=== PATIENT | male | born 1980 | race Caucasian/White ===

== ENCOUNTER → 2018-05-13 | Day surgery (SDC) | payer BC ==
[~2018-05-13] MED LIST: Lactated Ringers 1,000 ML IV SCH; Lidocaine 1% 2 ML ONE; Lidocaine 1%/Sod Bicarbonate in NS 8.4% 1 ML Syringe IDERM PRN; Propofol 200 MG/20 ML SDV ONE; Sodium Chloride 0.9% 10 ML Syringe FLUSH PRN; fentaNYL 100 MCG/2 ML SDV ONE
--- NOTE | 2018-05-13 08:57 | PCM.PREANE ---
Preanesthetic Assessment - Anesthesia/Transfusion/Family Hx Anesthesia History: Prior Anesthesia Without Reaction Family History of Anesthesia Reaction: No Transfusion History: No Prior Transfusion(s) - Review of Systems General: No Symptoms Pulmonary: No Symptoms Cardiovascular: No Symptoms Gastrointestinal: No Symptoms Neurological: No Symptoms Other: Reports: None - Physical Assessment NPO Status Date: 05/12/18 NPO Status Time: 00:00 Pulse: 68 O2 Sat by Pulse Oximetry: 96 Respiratory Rate: 16 Blood Pressure: 123/76 Temperature: 36.3 C Height: 1.78 m Weight: 136.123 kg ASA Class: 2 Mental Status: Alert & Oriented x3 Dentition: Reports: [place](s), Caries Thyro-Mental Finger Breadths: 2 Mouth Opening Finger Breadths: 2 ROM/Head Extension: Full Lungs: Clear to Auscultation, Normal Respiratory Effort Cardiovascular: Regular Rate, Regular Rhythm - Allergies Allergies/Adverse Reactions: Allergies Allergy/AdvReac Type Severity Reaction Status Date / Time No Known Allergies Allergy Verified 05/12/18 13:07 - Anesthesia Plan Pre-Op Medication Ordered: None - Acknowledgements Anesthesia Type Planned: MAC Pt an Appropriate Candidate for the Planned Anesthesia: Yes Alternatives and Risks of Anesthesia Discussed w Pt/Guardian: Yes Pt/Guardian Understands and Agrees with Anesthesia Plan: Yes PreAnesthesia Questionnaire Gastrointestinal History: Reports: GERD, Other (See Below) Other Gastrointestinal History: barretts esophagus Endocrine/Metabolic History: Reports: Obesity/BMI 30+ - Past Surgical History GI Surgical History: Reports: EGD, Hernia, Inguinal - SUBSTANCE USE Smoking Status *Q: Current Some Day Smoker Tobacco Use Within Last Twelve Months: Cigarettes Second Hand Smoke Exposure: No Days Per Week of Alcohol Use: 0 Number of Drinks Per Day: 0 Total Drinks Per Week: 0 Recreational Drug Use History: No - HOME MEDS Home Medications: Home Meds Omeprazole 20 mg PO DAILY 05/12/18 [History] - CURRENT (IN HOUSE) MEDS Current Meds: Current Medications Lactated Ringer's (Ringers, Lactated) 1,000 mls @ 125 mls/hr IV ASDIRECTED KAYLA Stop: 05/13/18 23:00 Lidocaine/Sodium Bicarbonate (Buffered Lidocaine 1% In Ns 8.4%) 0.25 ml IDERM ONETIME PRN PRN Reason: Prior to IV Start Stop: 05/13/18 18:00 Sodium Chloride (Saline Flush) 10 ml FLUSH ASDIRECTED PRN PRN Reason: Keep Vein Open Stop: 05/13/18 18:00
--- NOTE | 2018-05-13 10:42 | PCM48HPAN ---
Post Anesthesia Note - EVALUATION WITHIN 48HRS OF ANESTHETIC Vital Signs in Normal Range: Yes Patient Participated in Evaluation: Yes Respiratory Function Stable: Yes Airway Patent: Yes Cardiovascular Function Stable: Yes Hydration Status Stable: Yes Pain Control Satisfactory: Yes Nausea and Vomiting Control Satisfactory: Yes Mental Status Recovered: Yes Pulse Rate: 65 SaO2: 95 Resp Rate: 16 Temperature: 97.7 C Blood Pressure: 109/67
--- NOTE | 2018-05-13 10:48 | PCM.OPNOTE ---
- General Post-Op/Procedure Note Date of Surgery/Procedure: 05/13/18 Operative Procedure(s): esophagogastroduodenoscopy with biopsy Findings: 1) 6 mm gastric polyp along the greater curvature of the stomach, sessile, removed by cold forceps polypectomy 2) inflammatory changes to the GE junction and distal esophagus Pre Op Diagnosis: history of Faulkner's esophagus Post-Op Diagnosis: history of Faulkner's esophagus Anesthesia Technique: MAC Primary Surgeon: Cali Banuelos Anesthesia Provider: Kimber Scanlon Pathology: 1) gastric antrum 2) greater curvature gastric polyp 3) GE junction 4) Distal esophagus 5) esophagus at 30 cm Condition: Good Free Text/Narrative:: Indications for surgery: The patient is a 37 yo male, with a history of Faulkner' s esophagus diagnosed in 2008, recommended previously for annual surveillance, but he has not undergone any endoscopic surveillance for several years. He was consented for esophagogastroduodenoscopy with possible biopsy. Indications, risks, and benefits were discussed. Description of procedure: After surgical consent was verified, the patient was brought to the endoscopy suite. Anesthesia inducted monitored anesthesia care. A procedural time-out was performed to verify proper patient and proper procedure. Appropriate padding and straps were placed. A bite block was placed. An endoscope was inserted through the mouth and advanced down the esohagus, into the stomach, through the pylorus, and into the 2nd portion of the duodenum. The scope was then withdrawn into the stomach. Retroflexed views of the GE junction were obtained. The scope was withdrawn through the GE junction, and the esophagus was inspected. The duodenum appeared normal. Biopsy of the gastric antrum was performed, which appeared endoscopically normal. There was a 6 mm sessile polyp in the greater curvature of the stomach, which was removed by cold forceps polypectomy. The remaining portions of the stomach appeared normal. There were inflammatory changes at the GE junction with erythematous mucosa that extended about 4 cm from proximal from the GE junction. Multiple 4- quadrant biopsies were obtained at GE junction, distal esophagus, and at the most proximal extend of the erythema, which was approximately at 30 cm (from the teeth). The patient tolerated the procedure well, was brought out of anesthesia, and transported to the PACU in stable condition. I was present and scrubbed for the entirety of the case. Cali Siriratsivawong, M.D., F.A.C.S. General Surgery Pager: [phone]
== END | disposition home or self-care (01) ==
LOC: JD.SDS 08:32
PROVIDERS: ATTEND Student in an Organized Health Care Education/Training Program
DX: K22.70 Barrett's esophagus without dysplasia (principal); K31.7 Polyp of stomach and duodenum; K31.89 Other diseases of stomach and duodenum; K21.9 Gastro-esophageal reflux disease without esophagitis; E66.9 Obesity, unspecified; Z68.41 Body mass index [BMI] 40.0-44.9, adult; F17.210 Nicotine dependence, cigarettes, uncomplicated; Z79.899 Other long term (current) drug therapy
CPT/HCPCS: 43239; J2704; J3010; J7120; 00731; J2001

== ENCOUNTER 2020-03-07 13:39 | Inpatient (IN) | payer BC, OTHER ==
[2020-03-07] MEDS ORDERED: Lidocaine 2% Jelly 10 ML Urojet MUCMEM ONE (14:12)
--- NOTE | 2020-03-07 14:18 | EDM.PDOC ---
ED HPI GENERAL MEDICAL PROBLEM - General Chief Complaint: Abdominal Pain Stated Complaint: BLOOD IN STOOL Time Seen by Provider: 03/07/20 14:13 Source of Information: Reports: Patient, Family (spouse) History Limitations: Reports: No Limitations - History of Present Illness INITIAL COMMENTS - FREE TEXT/NARRATIVE: 39-year-old male presents to the ED with 2 weeks history of movements per day that are all containing bright red blood. He appreciates dripping of blood into the toilet after having a bowel movement at times. He is not sure if the blood is wrapped around the outside of the stool or mixed in the stool. He has no pain with defecation. He states there is a little bit of urgency to go the last week or so. He has had intermittent rectal bleeding presumably due to hemorrhoids for several years. It is never lasted this long number or been present on a daily basis. He has never had a colonoscopy. He is feeling somewhat short of breath on exertion. Denies being dizzy or lightheaded. Onset: Other (Leading per rectum with every bowel movement) Onset Date: 02/29/20 Duration: Day(s):, Constant, Recurring (3 bowel movement has blood associated with it enough to color the entire toilet bowl bright red.) Location: Reports: Other (Bright red bleeding per rectum) Quality: Reports: Other Severity: Moderate (Bleeding per rectum) Improves with: Reports: None Worsens with: Reports: None Context: Denies: Activity, Exercise, Lifting, Sick Contact, Trauma, Other Associated Symptoms: Reports: Malaise, Shortness of Breath, Weakness (Is a little weak in the legs at times.). Denies: Confusion, Chest Pain, Cough, cough w sputum, Diaphoresis, Fever/Chills, Headaches, Loss of Appetite, Nausea/Vomiting, Rash, Seizure, Syncope (On exertion mildly.) Treatments LICENSED PHYSICAL THERAPIST ASSISTANT: Reports: Other (see below) Other Treatments LICENSED PHYSICAL THERAPIST ASSISTANT: denies using aspirin.motrin or pepto bismol Abdomen Pain Score (Numeric/FACES): 3 - Related Data Allergies Allergy/AdvReac Type Severity Reaction Status Date / Time No Known Allergies Allergy Verified 05/13/18 09:20 Home Meds: Home Meds Omeprazole 20 mg PO DAILY 05/12/18 [History] Past Medical History Gastrointestinal History: Reports: GERD, Other (See Below) Other Gastrointestinal History: barretts esophagus Endocrine/Metabolic History: Reports: Obesity/BMI 30+ - Past Surgical History GI Surgical History: Reports: EGD, Hernia, Inguinal Social & Family History - Tobacco Use Smoking Status *Q: Current Every Day Smoker Years of Tobacco use: 5 Packs/Tins Daily: 1 - Caffeine Use Caffeine Use: Reports: Tea - Recreational Drug Use Recreational Drug Use: No - Living Situation & Occupation Living situation: Reports: Occupation: Unemployed ED ROS GENERAL - Review of Systems Review Of Systems: See Below Constitutional: Reports: Malaise, Fatigue. Denies: Fever, Chills, Night Sweats, Diaphoresis, Decreased Appetite, Weight Loss, Weight Gain HEENT: Reports: No Symptoms Respiratory: Reports: Shortness of Breath (On exertion this last few days.) Cardiovascular: Reports: Dyspnea on Exertion. Denies: Chest Pain, Blood Pressure Problem, Claudication, Edema, Lightheadedness, Orthopnea, Palpitations (Noticed that slightly going up stairs.) Endocrine: Reports: Fatigue GI/Abdominal: Reports: Bloody Stool ([place] for the last week which is usually once or twice daily.), Hematochezia : Reports: No Symptoms Musculoskeletal: Reports: No Symptoms Skin: Reports: No Symptoms Neurological: Reports: No Symptoms Psychiatric: Reports: No Symptoms Hematologic/Lymphatic: Reports: No Symptoms Immunologic: Reports: No Symptoms ED EXAM, GI/ABD - Physical Exam Exam: See Below Exam Limited By: No Limitations General Appearance: WD/WN, No Apparent Distress, Other (Patient does appear quite pallid. Temperature is 36.8 pulse 93 respiratory is 20 BP 10/13/1976 pulse ox 100% on room air) Eyes: Bilateral: Pale Conjunctiva (Does have significant blepharal pallor bilaterally.) Respiratory/Chest: No Respiratory Distress, Lungs Clear, Normal Breath Sounds, No Accessory Muscle Use, Chest Non-Tender Cardiovascular: Normal Peripheral Pulses, Regular Rate, Rhythm, No Edema, No Gallop, No Murmur, No Rub GI/Abdominal Exam: Normal Bowel Sounds, Soft, Non-Tender, No Organomegaly, No Abnormal Bruit, No Mass, Pelvis Stable, Other (Surgical scars) Back Exam: Normal Inspection, Full Range of Motion. No: CVA Tenderness (L), CVA Tenderness (R) Extremities: Normal Inspection, Normal Range of Motion, Non-Tender, No Pedal Edema Neurological: Alert, Oriented, CN II-XII Intact, Normal Cognition Psychiatric: Normal Affect, Normal Mood Skin Exam: Warm, Dry, Intact, Pallor (Especially noted in the palmar creases of his hands.) Course - Vital Signs Last Recorded V/S: Last Vital Signs Temp 36.9 C 03/07/20 16:47 Pulse 87 03/07/20 16:47 Resp 161 H 03/07/20 16:47 BP 135/61 03/07/20 16:47 Pulse Ox 99 03/07/20 16:47 - Orders/Labs/Meds Orders: Active Orders 24 hr Category Date Time Status PACKED CELLS [RED BLOOD CELLS LP] [BBK] Stat Lab 03/07/20 14:25 Results TYPE AND SCREEN [BBK] Stat Lab 03/07/20 14:25 Results Transfuse PRBC [Transfuse Red Blood Cells] [COMM] Oth 03/07/20 15:15 Ordered Urgent Labs: Laboratory Tests 03/07/20 03/07/20 03/07/20 Range/Units 14:25 14:25 14:25 WBC 6.65 (4.23-9.07) K/mm3 RBC 3.82 L (4.63-6.08) M/mm3 Hgb 6.9 L* D (13.7-17.5) gm/dl Hct 24.7 L (40.1-51.0) % MCV 64.7 L D (79.0-92.2) fl MCH 18.1 L (25.7-32.2) pg MCHC 27.9 L (32.2-35.5) g/dl RDW Std Deviation 39.2 (35.1-43.9) fL Plt Count 396 H D (163-337) K/mm3 MPV 8.5 L (9.4-12.3) fl Neut % (Auto) 72.7 H (34.0-67.9) % Lymph % (Auto) 17.9 L (21.8-53.1) % O'Brien % (Auto) 6.9 (5.3-12.2) % Eos % (Auto) 1.4 (0.8-7.0) Baso % (Auto) 0.5 (0.1-1.2) % Neut # (Auto) 4.84 (1.78-5.38) K/mm3 Lymph # (Auto) 1.19 L (1.32-3.57) K/mm3 O'Brien # (Auto) 0.46 (0.30-0.82) K/mm3 Eos # (Auto) 0.09 (0.04-0.54) K/mm3 Baso # (Auto) 0.03 (0.01-0.08) K/mm3 Manual Slide Review Abnormal smear PT 10.7 (9.7-12.0) SECONDS INR 0.98 APTT 26 (22-31) SECONDS Sodium 138 (136-145) mEq/L Potassium 4.2 (3.5-5.1) mEq/L Chloride 104 (98-107) mEq/L Carbon Dioxide 24 (21-32) mEq/L Anion Gap 14.2 (5-15) BUN 11 (7-18) mg/dL Creatinine 1.1 (0.7-1.3) mg/dL Est Cr Clr Drug Dosing 92.17 mL/min Estimated GFR (MDRD) > 60 (>60) mL/min BUN/Creatinine Ratio 10.0 L (14-18) Glucose 94 (74-106) mg/dL Calcium 7.8 L (8.5-10.1) mg/dL Total Bilirubin 0.7 (0.2-1.0) mg/dL AST 18 (15-37) U/L ALT 32 (16-63) U/L Alkaline Phosphatase 66 (46-116) U/L Total Protein 7.5 (6.4-8.2) g/dl Albumin 4.0 (3.4-5.0) g/dl Globulin 3.5 gm/dL Albumin/Globulin Ratio 1.1 (1-2) Blood Type Gel Antibody Screen Crossmatch 03/07/20 Range/Units 14:25 WBC (4.23-9.07) K/mm3 RBC (4.63-6.08) M/mm3 Hgb (13.7-17.5) gm/dl Hct (40.1-51.0) % MCV (79.0-92.2) fl MCH (25.7-32.2) pg MCHC (32.2-35.5) g/dl RDW Std Deviation (35.1-43.9) fL Plt Count (163-337) K/mm3 MPV (9.4-12.3) fl Neut % (Auto) (34.0-67.9) % Lymph % (Auto) (21.8-53.1) % O'Brien % (Auto) (5.3-12.2) % Eos % (Auto) (0.8-7.0) Baso % (Auto) (0.1-1.2) % Neut # (Auto) (1.78-5.38) K/mm3 Lymph # (Auto) (1.32-3.57) K/mm3 O[place]Brien # (Auto) (0.30-0.82) K/mm3 Eos # (Auto) (0.04-0.54) K/mm3 Baso # (Auto) (0.01-0.08) K/mm3 Manual Slide Review PT (9.7-12.0) SECONDS INR APTT (22-31) SECONDS Sodium (136-145) mEq/L Potassium (3.5-5.1) mEq/L Chloride (98-107) mEq/L Carbon Dioxide (21-32) mEq/L Anion Gap (5-15) BUN (7-18) mg/dL Creatinine (0.7-1.3) mg/dL Est Cr Clr Drug Dosing mL/min Estimated GFR (MDRD) (>60) mL/min BUN/Creatinine Ratio (14-18) Glucose (74-106) mg/dL Calcium (8.5-10.1) mg/dL Total Bilirubin (0.2-1.0) mg/dL AST (15-37) U/L ALT (16-63) U/L Alkaline Phosphatase (46-116) U/L Total Protein (6.4-8.2) g/dl Albumin (3.4-5.0) g/dl Globulin gm/dL Albumin/Globulin Ratio (1-2) Blood Type O POSITIVE Gel Antibody Screen Negative Crossmatch See Detail Meds: Medications Discontinued Medications Generic Name Dose Route Start Last Admin Trade Name Freq PRN Reason Stop Dose Admin Lidocaine HCl 10 ml 03/07/20 14:12 03/07/20 18:09 Xylocaine 2% Jelly MUCMEM 03/07/20 14:13 10 ml ONETIME ONE Administration - Radiology Interpretation Free Text/Narrative:: 39-year-old male presents to the ED reporting blood with every bowel movement which is usually once or twice per day for the last week or more. Now he starting to feel somewhat symptomatic with weakness and dyspnea on exertion. He is not lightheaded. On examination he is quite pallid. I suspect his hemoglobin is around 9. Plan: routine lab work. This will include a type and screen. 9 will be to proceed with a rigid sigmoidoscopy to see if we can identify the source of bleeding per rectum. - Re-Assessments/Exams Free Text/Narrative Re-Assessment/Exam: 03/07/20 17:44: White count was 6.65. The neutrophils were 72.7% on the auto differential. Hemoglobin of 6.9 with a hematocrit of 24.7. MCV is 64.7 suggesting severe iron deficiency. Platelet count 396,000. Labs reveal 1+ anisocytosis and 2+ microcytosis and 2+ hypochromia and 1+ polychromasia. PT is 10.7 with INR of 0.98 PTT is 26. Sodium is 138 with potassium is 4.2. Chloride 104 with a bicarb of 24. Anion gap is 14.2. BUN is 11 with a creatinine of 1.1. GFR is greater than 60. Glucose is 94 calcium is 7.8 which correlates with acute blood loss. Bilirubin is 0.7 AST is 18 ALT is 32 Alk phosphatase 66 total protein 7.5 with an albumin fraction of 4.0. I attempted to do a sigmoidoscopy but the light burned out in the scope as I was doing the procedure. Admitted up to 16 cm and there was blood coating the lining of the colon at that level. There appears to be a large hemorrhoid internally at the 3:00 and 7:00 positions. I thought the 3:00 1 was actively oozing some blood. The procedure was also quite painful for the patient suggesting an anal fissure but unfortunate the leg went out before I could visualize the anal canal on the way out. 03/07/20 18:46 patient made with the patient and his that he will stay in the hospital and receive his blood transfusions overnight with a view to bowel prep per tomorrow and tentatively have his colonoscopy on Saturday morning. We discussed the case with Dr. Warner in this regard. 03/07/20 18:[address] Ramirez and he is excepted care. Patient will be admitted to the med surgery floor on telemetry. Departure - Departure Time of Disposition: 18:51 Disposition: Admitted As Inpatient 65 Condition: Fair Clinical Impression: Lower gastrointestinal bleeding, Internal bleeding hemorrhoids Anemia Qualifiers: Anemia type: iron deficiency Iron deficiency anemia type: chronic blood loss Qualified Code(s): D50.0 - Iron deficiency anemia secondary to blood loss (chronic) - Discharge Information *PRESCRIPTION DRUG MONITORING PROGRAM REVIEWED*: Not Applicable *COPY OF PRESCRIPTION DRUG MONITORING REPORT IN PATIENT KIT: Not Applicable Referrals: Ashley Mcdonald FLAT EXAMINER [Primary Care Provider] - Forms: ED Department Discharge Sepsis Event Note (ED) - Evaluation Sepsis Screening Result: No Definite Risk - Focused Exam Vital Signs: Vital Signs Temp Temp Pulse Resp BP Pulse Ox 03/07/20 16:47 36.9 C 87 161 H 135/61 99 03/07/20 16:32 36.6 C 85 16 116/77 100 03/07/20 13:56 36.8 C 93 20 128/77 100 - My Orders Last 24 Hours: My Active Orders 03/07/20 14:25 PACKED CELLS [RED BLOOD CELLS LP] [BBK] Stat TYPE AND SCREEN [BBK] Stat 03/07/20 15:15 Transfuse PRBC [Transfuse Red Blood Cells] [COMM] Urgent - Assessment/Plan Last 24 Hours: My Active Orders 03/07/20 14:25 PACKED CELLS [RED BLOOD CELLS LP] [BBK] Stat TYPE AND SCREEN [BBK] Stat 03/07/20 15:15 Transfuse PRBC [Transfuse Red Blood Cells] [COMM] Urgent
--- NOTE | 2020-03-07 17:49 | PCM.CONS ---
H&P History of Present Illness - General Date of Service: 03/07/20 Source of Information: Patient, Family, Provider History Limitations: Reports: No Limitations - History of Present Illness Initial Comments - Free Text/Narative: The patient is a 39 y/o gentleman who presents with one week of rectal bleeding. The blood is bright red and fills the toilet bowl. He has bowel movements 1-2x daily, and this is unchanged from baseline. reports his symptoms may have started with consumption of more nuts and seeds, and also that he has had abdominal tenderness in the last week. He denies any loose stools or diarrhea. He denies any pain. In the ED, pt had low hemoglobin, actively receiving a blood transfusion. Abdomen Pain Score (Numeric/FACES): 3 - Related Data Allergies/Adverse Reactions: Allergies Allergy/AdvReac Type Severity Reaction Status Date / Time No Known Allergies Allergy Verified 05/13/18 09:20 Home Medications: Home Meds Omeprazole 20 mg PO DAILY 05/12/18 [History] Past Medical History Gastrointestinal History: Reports: GERD, Other (See Below) Other Gastrointestinal History: barretts esophagus Endocrine/Metabolic History: Reports: Obesity/BMI 30+ - Past Surgical History GI Surgical History: Reports: EGD, Hernia, Inguinal Social & Family History - Tobacco Use Smoking Status *Q: Current Every Day Smoker Years of Tobacco use: 5 Packs/Tins Daily: 1 - Caffeine Use Caffeine Use: Reports: Tea - Recreational Drug Use Recreational Drug Use: No - Living Situation & Occupation Living situation: Reports: Occupation: Unemployed H&P Review of Systems - Review of Systems: Review Of Systems: See Below General: Reports: No Symptoms HEENT: Reports: No Symptoms Pulmonary: Reports: Shortness of Breath Cardiovascular: Reports: No Symptoms Gastrointestinal: Reports: Bloody Stool. Denies: Nausea, Vomiting Musculoskeletal: Reports: No Symptoms Skin: Reports: No Symptoms Neurological: Reports: No Symptoms Hematologic/Lymphatic: Reports: No Symptoms Exam - Exam Exam: See Below - Vital Signs Vital Signs: Last Vital Signs Temp 36.9 C 03/07/20 16:47 Pulse 87 03/07/20 16:47 Resp 161 H 03/07/20 16:47 BP 135/61 03/07/20 16:47 Pulse Ox 99 03/07/20 16:47 Weight: 140.614 kg - Exam Quality Assessment: No: Supplemental Oxygen General: Alert, Oriented HEENT: Conjunctiva Clear, EOMI Neck: Supple Lungs: Normal Respiratory Effort Cardiovascular: Regular Rate, Regular Rhythm GI/Abdominal Exam: Soft, Non-Tender, No Distention Rectal (Males) Exam: Hemorrhoids Extremities: Pedal Edema Peripheral Pulses: 2+: Dorsalis Pedis (L), Dorsalis Pedis (R) Skin: Warm, Dry, Intact Neurological: Cranial Nerves Intact Neuro Extensive - Mental Status: Normal Mood/Affect - Patient Data Lab Results Last 24 hrs: Laboratory Results - last 24 hr 03/07/20 03/07/20 03/07/20 Range/Units 14:25 14:25 14:25 WBC 6.65 (4.23-9.07) K/mm3 RBC 3.82 L (4.63-6.08) M/mm3 Hgb 6.9 L* D (13.7-17.5) gm/dl Hct 24.7 L (40.1-51.0) % MCV 64.7 L D (79.0-92.2) fl MCH 18.1 L (25.7-32.2) pg MCHC 27.9 L (32.2-35.5) g/dl RDW Std Deviation 39.2 (35.1-43.9) fL Plt Count 396 H D (163-337) K/mm3 MPV 8.5 L (9.4-12.3) fl Neut % (Auto) 72.7 H (34.0-67.9) % Lymph % (Auto) 17.9 L (21.8-53.1) % Caroline % (Auto) 6.9 (5.3-12.2) % Eos % (Auto) 1.4 (0.8-7.0) Baso % (Auto) 0.5 (0.1-1.2) % Neut # (Auto) 4.84 (1.78-5.38) K/mm3 Lymph # (Auto) 1.19 L (1.32-3.57) K/mm3 Caroline # (Auto) 0.46 (0.30-0.82) K/mm3 Eos # (Auto) 0.09 (0.04-0.54) K/mm3 Baso # (Auto) 0.03 (0.01-0.08) K/mm3 Manual Slide Review Abnormal smear PT 10.7 (9.7-12.0) SECONDS INR 0.98 APTT 26 (22-31) SECONDS Sodium 138 (136-145) mEq/L Potassium 4.2 (3.5-5.1) mEq/L Chloride 104 (98-107) mEq/L Carbon Dioxide 24 (21-32) mEq/L Anion Gap 14.2 (5-15) BUN 11 (7-18) mg/dL Creatinine 1.1 (0.7-1.3) mg/dL Est Cr Clr Drug Dosing 92.17 mL/min Estimated GFR (MDRD) > 60 (>60) mL/min BUN/Creatinine Ratio 10.0 L (14-18) Glucose 94 (74-106) mg/dL Calcium 7.8 L (8.5-10.1) mg/dL Total Bilirubin 0.7 (0.2-1.0) mg/dL AST 18 (15-37) U/L ALT 32 (16-63) U/L Alkaline Phosphatase 66 (46-116) U/L Total Protein 7.5 (6.4-8.2) g/dl Albumin 4.0 (3.4-5.0) g/dl Globulin 3.5 gm/dL Albumin/Globulin Ratio 1.1 (1-2) Blood Type Gel Antibody Screen Crossmatch 03/07/20 Range/Units 14:25 WBC (4.23-9.07) K/mm3 RBC (4.63-6.08) M/mm3 Hgb (13.7-17.5) gm/dl Hct (40.1-51.0) % MCV (79.0-92.2) fl MCH (25.7-32.2) pg MCHC (32.2-35.5) g/dl RDW Std Deviation (35.1-43.9) fL Plt Count (163-337) K/mm3 MPV (9.4-12.3) fl Neut % (Auto) (34.0-67.9) % Lymph % (Auto) (21.8-53.1) % Caroline % (Auto) (5.3-12.2) % Eos % (Auto) (0.8-7.0) Baso % (Auto) (0.1-1.2) % Neut # (Auto) (1.78-5.38) K/mm3 Lymph # (Auto) (1.32-3.57) K/mm3 Caroline # (Auto) (0.30-0.82) K/mm3 Eos # (Auto) (0.04-0.54) K/mm3 Baso # (Auto) (0.01-0.08) K/mm3 Manual Slide Review PT (9.7-12.0) SECONDS INR APTT (22-31) SECONDS Sodium (136-145) mEq/L Potassium (3.5-5.1) mEq/L Chloride (98-107) mEq/L Carbon Dioxide (21-32) mEq/L Anion Gap (5-15) BUN (7-18) mg/dL Creatinine (0.7-1.3) mg/dL Est Cr Clr Drug Dosing mL/min Estimated GFR (MDRD) (>60) mL/min BUN/Creatinine Ratio (14-18) Glucose (74-106) mg/dL Calcium (8.5-10.1) mg/dL Total Bilirubin (0.2-1.0) mg/dL AST (15-37) U/L ALT (16-63) U/L Alkaline Phosphatase (46-116) U/L Total Protein (6.4-8.2) g/dl Albumin (3.4-5.0) g/dl Globulin gm/dL Albumin/Globulin Ratio (1-2) Blood Type O POSITIVE Gel Antibody Screen Negative Crossmatch See Detail Result Diagrams: 03/07/20 14:25 03/07/20 14:25 Sepsis Event Note - Evaluation Sepsis Screening Result: No Definite Risk - Focused Exam Vital Signs: Vital Signs Temp Temp Pulse Resp BP Pulse Ox 03/07/20 16:47 36.9 C 87 161 H 135/61 99 03/07/20 16:32 36.6 C 85 16 116/77 100 03/07/20 13:56 36.8 C 93 20 128/77 100 Date Exam was Performed: 03/07/20 Time Exam was Performed: 18:09 Consult PN Assessment/Plan Procedures: Procedures ASSAY THYROID STIM HORMONE (04/09/18) COMPLETE CBC AUTOMATED (04/09/18) COMPREHEN METABOLIC PANEL (04/09/18) EGD BIOPSY SINGLE/MULTIPLE (05/13/18) GLYCOSYLATED HEMOGLOBIN TEST (04/09/18) LIPID PANEL (04/09/18) ROUTINE VENIPUNCTURE (04/09/18) URINALYSIS AUTO W/SCOPE (04/09/18) (1) Lower GI bleed SNOMED Code(s): 42342761 Code(s): K92.2 - GASTROINTESTINAL HEMORRHAGE, UNSPECIFIED Current Visit: Yes (2) History of Faulkner's esophagus SNOMED Code(s): 68934463847340001 Code(s): Z87.19 - PERSONAL HISTORY OF OTHER DISEASES OF THE DIGESTIVE SYSTEM Current Visit: No Problem List Initiated/Reviewed/Updated: Yes Plan: 39 y/o gentleman with rectal bleeding. minimally symptomatic, so blood loss is likely more chronic - continue transfusion of PRBC - if pt is admitted, recommend prep of golytely tomorrow. If pt goes home, he may prep at home. - plan for EGD and colonoscopy in 2 days for evaluation of bleeding - clear liquid diet - IVF resuscitation while in the hospital Nani Womack MD General surgery
[2020-03-07] MEDS ORDERED: Acetaminophen 325 MG Tab PO PRN (21:26)
[2020-03-07] MEDS ORDERED: Ondansetron 4 MG/2 ML SDV IV PRN (21:26)
--- NOTE | 2020-03-07 21:44 | PCM.HP.2 ---
H&P History of Present Illness - General Date of Service: 03/07/20 Admit Problem/Dx: Admission Diagnosis/Problem Admission Diagnosis/Problem Anemia - History of Present Illness Initial Comments - Free Text/Narative: 39-year-old male with a 1 to 2-week history of bright red blood per rectum. He states he has had bright red blood per rectum for the last 20 years off-and-on, but over the last week or so he has had some stomach discomfort, worsening sleep, increasing fatigue, and dyspnea on exertion. He states when he goes upstairs he can tell his heart is pounding and is short of breath. He states that there is been a lot of blood in the toilet. He states that generally only occurs with defecation. He denies any rectal pain. Patient has no recent weight loss, fever, chills, diaphoresis, or night sweats. Denies any lightheadedness or dizziness. No family history of colon cancer, but his dad had bladder cancer. That was a smoker. He is a non-smoker and nondrinker. He is on omeprazole 20 mg for reflux. In the emergency department patient was found to have a hemoglobin of 6.9. Vitals were stable with a blood pressure of 135/61 and heart rate of 87. Dr. Armendariz in surgery was consulted and she recommended transfusion and either inpatient or outpatient prep for colonoscopy. Dr. Greer did a sigmoidoscope up to 16 cm and there was blood coating the lining of the colon at 16 cm. There was a large hemorrhoid internally at both 3:00 and 7:00 positions. The 3:00 hemorrhoid was actively oozing some blood. Unfortunately, at 16 cm and the scope light burned out. It was felt that he would be at risk because of the active bleeding if he went home tonight. Plan will be to prep tomorrow and have colonoscopy done on Saturday morning. Abdomen Pain Score (Numeric/FACES): 3 - Related Data Allergies/Adverse Reactions: Allergies Allergy/AdvReac Type Severity Reaction Status Date / Time apple Allergy Other Verified 03/07/20 20:35 Home Medications: Home Meds Omeprazole 20 mg PO DAILY 05/12/18 [History] Past Medical History Gastrointestinal History: Reports: GERD, Other (See Below) Other Gastrointestinal History: barretts esophagus Endocrine/Metabolic History: Reports: Obesity/BMI 30+ - Infectious Disease History Infectious Disease History: Reports: Chicken Pox - Past Surgical History GI Surgical History: Reports: EGD, Hernia, Inguinal Social & Family History - Family History Family Medical History: Noncontributory - Tobacco Use Smoking Status *Q: Current Every Day Smoker Years of Tobacco use: 25 Packs/Tins Daily: 1 - Caffeine Use Caffeine Use: Reports: Energy Drinks, Tea - Recreational Drug Use Recreational Drug Use: No - Living Situation & Occupation Living situation: Reports: Occupation: Unemployed H&P Review of Systems - Review of Systems: Review Of Systems: Comprehensive ROS is negative, except as noted in HPI. Exam - Exam Exam: See Below - Vital Signs Vital Signs: Last Vital Signs Temp 98.0 F 03/07/20 19:37 Pulse 87 03/07/20 19:37 Resp 18 03/07/20 19:37 BP 107/70 03/07/20 19:37 Pulse Ox 97 03/07/20 19:37 Weight: 140.659 kg - Exam Quality Assessment: No: Supplemental Oxygen General: Alert, Oriented, 4 HEENT: Mucosa Moist & [place], Normal Nasal Septum. No: Conjunctiva Clear (Pale) Neck: Supple, Trachea Midline, 2 Lungs: Clear to Auscultation, Normal Respiratory Effort Cardiovascular: Regular Rate, Regular Rhythm GI/Abdominal Exam: Normal Bowel Sounds, Soft, Non-Tender, No Organomegaly, No Distention, No Abnormal Bruit Back Exam: Normal Inspection Extremities: Normal Inspection, Normal Range of Motion, Non-Tender, Normal Capillary Refill, Pedal Edema (1+ pitting edema at the ankles bilaterally) Peripheral Pulses: 2+: Posterior Tibial (L), Posterior Tibial (R), Dorsalis Pedis (L), Dorsalis Pedis (R) Skin: Warm, Dry, Intact Neurological: Cranial Nerves Intact, Reflexes Equal Bilateral Neuro Extensive - Mental Status: Alert, Oriented x3, Normal Mood/Affect, Normal Cognition Psychiatric: Alert, Normal Affect, Normal Mood - Patient Data Lab Results Last 24 hrs: Laboratory Results - last 24 hr 03/07/20 03/07/20 03/07/20 Range/Units 14:25 14:25 14:25 WBC 6.65 (4.23-9.07) K/mm3 RBC 3.82 L (4.63-6.08) M/mm3 Hgb 6.9 L* D (13.7-17.5) gm/dl Hct 24.7 L (40.1-51.0) % MCV 64.7 L D (79.0-92.2) fl MCH 18.1 L (25.7-32.2) pg MCHC 27.9 L (32.2-35.5) g/dl RDW Std Deviation 39.2 (35.1-43.9) fL Plt Count 396 H D (163-337) K/mm3 MPV 8.5 L (9.4-12.3) fl Neut % (Auto) 72.7 H (34.0-67.9) % Lymph % (Auto) 17.9 L (21.8-53.1) % [place] % (Auto) 6.9 (5.3-12.2) % Eos % (Auto) 1.4 (0.8-7.0) Baso % (Auto) 0.5 (0.1-1.2) % Neut # (Auto) 4.84 (1.78-5.38) K/mm3 Lymph # (Auto) 1.19 L (1.32-3.57) K/mm3 [place] # (Auto) 0.46 (0.30-0.82) K/mm3 Eos # (Auto) 0.09 (0.04-0.54) K/mm3 Baso # (Auto) 0.03 (0.01-0.08) K/mm3 Manual Slide Review Abnormal smear PT 10.7 (9.7-12.0) SECONDS INR 0.98 APTT 26 (22-31) SECONDS Sodium 138 (136-145) mEq/L Potassium 4.2 (3.5-5.1) mEq/L Chloride 104 (98-107) mEq/L Carbon Dioxide 24 (21-32) mEq/L Anion Gap 14.2 (5-15) BUN 11 (7-18) mg/dL Creatinine 1.1 (0.7-1.3) mg/dL Est Cr Clr Drug Dosing 92.17 mL/min Estimated GFR (MDRD) > 60 (>60) mL/min BUN/Creatinine Ratio 10.0 L (14-18) Glucose 94 (74-106) mg/dL Calcium 7.8 L (8.5-10.1) mg/dL Iron (65-175) ug/dL TIBC (100-400) ug/dL % Saturation (20-55) % Transferrin (202-364) mg/dL Ferritin (26-388) ng/ml Total Bilirubin 0.7 (0.2-1.0) mg/dL AST 18 (15-37) U/L ALT 32 (16-63) U/L Alkaline Phosphatase 66 (46-116) U/L Total Protein 7.5 (6.4-8.2) g/dl Albumin 4.0 (3.4-5.0) g/dl Globulin 3.5 gm/dL Albumin/Globulin Ratio 1.1 (1-2) Blood Type Gel Antibody Screen Crossmatch 03/07/20 03/07/20 Range/Units 14:25 19:10 WBC (4.23-9.07) K/mm3 RBC (4.63-6.08) M/mm3 Hgb (13.7-17.5) gm/dl Hct (40.1-51.0) % MCV (79.0-92.2) fl MCH (25.7-32.2) pg MCHC (32.2-35.5) g/dl RDW Std Deviation (35.1-43.9) fL Plt Count (163-337) K/mm3 MPV (9.4-12.3) fl Neut % (Auto) (34.0-67.9) % Lymph % (Auto) (21.8-53.1) % [place] % (Auto) (5.3-12.2) % Eos % (Auto) (0.8-7.0) Baso % (Auto) (0.1-1.2) % Neut # (Auto) (1.78-5.38) K/mm3 Lymph # (Auto) (1.32-3.57) K/mm3 [place] # (Auto) (0.30-0.82) K/mm3 Eos # (Auto) (0.04-0.54) K/mm3 Baso # (Auto) (0.01-0.08) K/mm3 Manual Slide Review PT (9.7-12.0) SECONDS INR APTT (22-31) SECONDS Sodium (136-145) mEq/L Potassium (3.5-5.1) mEq/L Chloride (98-107) mEq/L Carbon Dioxide (21-32) mEq/L Anion Gap (5-15) BUN (7-18) mg/dL Creatinine (0.7-1.3) mg/dL Est Cr Clr Drug Dosing mL/min Estimated GFR (MDRD) (>60) mL/min BUN/Creatinine Ratio (14-18) Glucose (74-106) mg/dL Calcium (8.5-10.1) mg/dL Iron 25 L (65-175) ug/dL TIBC 394 (100-400) ug/dL % Saturation 6 L (20-55) % Transferrin 315 (202-364) mg/dL Ferritin 4 L (26-388) ng/ml Total Bilirubin (0.2-1.0) mg/dL AST (15-37) U/L ALT (16-63) U/L Alkaline Phosphatase (46-116) U/L Total Protein (6.4-8.2) g/dl Albumin (3.4-5.0) g/dl Globulin gm/dL Albumin/Globulin Ratio (1-2) Blood Type O POSITIVE Gel Antibody Screen Negative Crossmatch See Detail Result Diagrams: 03/07/20 14:25 03/07/20 14:25 Sepsis Event Note - Evaluation Sepsis Screening Result: No Definite Risk - Focused Exam Vital Signs: Vital Signs Temp Temp Pulse Resp BP Pulse Ox 03/07/20 19:37 98.0 F 87 18 107/70 97 03/07/20 19:35 98.0 F 87 18 107/70 03/07/20 19:19 98.3 F 84 121/69 03/07/20 19:18 98.3 F 80 16 121/69 03/07/20 16:47 98.4 F 87 161 H 135/61 99 03/07/20 16:32 97.9 F 85 16 116/77 100 03/07/20 13:56 98.3 F 93 20 128/77 100 Date Exam was Performed: 03/07/20 Time Exam was Performed: 22:02 - Problem List (1) Anemia SNOMED Code(s): 894478247 ICD Code: D64.9 - ANEMIA, UNSPECIFIED Status: Acute Current Visit: Yes Qualifiers: Anemia type: iron deficiency Iron deficiency anemia type: chronic blood loss Qualified Code(s): D50.0 - Iron deficiency anemia secondary to blood loss (chronic) (2) Internal bleeding hemorrhoids SNOMED Code(s): 42954109 ICD Code: K64.8 - OTHER HEMORRHOIDS Status: Acute Current Visit: Yes (3) Lower GI bleed SNOMED Code(s): 31386460 ICD Code: K92.2 - GASTROINTESTINAL HEMORRHAGE, UNSPECIFIED Status: Acute Current Visit: Yes (4) History of Faulkner's esophagus SNOMED Code(s): 58062167229194460 ICD Code: Z87.19 - PERSONAL HISTORY OF OTHER DISEASES OF THE DIGESTIVE SYSTEM Status: Acute Current Visit: No Problem List Initiated/Reviewed/Updated: Yes Orders Last 24hrs: Active Orders 24 hr Category Date Time Status Admission Status [Patient Status] [ADT] Routine ADT 03/07/20 18:53 Active Antiembolic Devices [RC] PER UNIT ROUTINE Care 03/07/20 21:28 Active Notify Provider Consults [RC] ASDIRECTED Care 03/07/20 21:28 Active Oxygen Therapy [RC] PRN Care 03/07/20 21:26 Active Up ad Missy [RC] ASDIRECTED Care 03/07/20 21:26 Active VTE/DVT Education [RC] PER UNIT ROUTINE Care 03/07/20 21:26 Active Vital Signs [RC] Q4H Care 03/07/20 21:26 Active Consult to Physician [CONS] Routine Cons 03/07/20 21:26 Active Clear Liquid Diet [DIET] Diet 03/07/20 Dinner Ordered CBC WITH AUTO DIFF [HEME] AM Lab 03/08/20 05:11 Ordered CMP [COMPREHENSIVE METABOLIC PN,CMP] [CHEM] AM Lab 03/08/20 05:11 Ordered MAGNESIUM [CHEM] AM Lab 03/08/20 05:11 Ordered PACKED CELLS [RED BLOOD CELLS LP] [BBK] Stat Lab 03/07/20 14:25 Results PHOSPHORUS [CHEM] AM Lab 03/08/20 05:11 Ordered TYPE AND SCREEN [BBK] Stat Lab 03/07/20 14:25 Results Acetaminophen [Tylenol] Med 03/07/20 21:26 Active 650 mg PO Q4H PRN Ondansetron [Zofran] Med 03/07/20 21:26 Active 4 mg IV Q4H PRN Pantoprazole [ProTONIX] Med 03/08/20 06:00 Active 40 mg PO ACBREAKFAST Antiembolic Hose [OM.PC] Per Unit Routine Oth 03/07/20 21:27 Ordered Transfuse PRBC [Transfuse Red Blood Cells] [COMM] Oth 03/07/20 15:15 Ordered Urgent Resuscitation Status Routine Resus Stat 03/07/20 21:26 Ordered Medication Orders Acetaminophen (Tylenol) 650 mg PO Q4H PRN PRN Reason: Pain (Mild 1-3)/fever Ondansetron HCl (Zofran) 4 mg IV Q4H PRN PRN Reason: Nausea/Vomiting Pantoprazole Sodium (Protonix) 40 mg PO ACBREAKFAST KAYLA Assessment/Plan Comment:: Lower GI bleed with iron deficiency anemia and blood loss anemia * Hemoglobin of 6.9 on admission * History of significant rectal bleeding for the last 1 to 2 weeks. * No previous colonoscopy, but upper endoscopy previously performed showing Faulkner's esophagus * Iron 25, percent saturation 6, ferritin 4 * No current weight loss, night sweats Plan * Transfused 3 units packed red blood cells * Clear liquid diet * Bowel prep with GoLYTELY tomorrow * Colonoscopy planned by Dr. Armendariz on Saturday * Follow hemoglobin closely GERD * History of reflux and Faulkner esophagus * Currently on omeprazole 20 mg daily Plan * Protonix 40 mg every morning Hypocalcemia * Calcium 7.8 * Albumin 4.0 Plan * Recheck calcium in the morning * Magnesium level in the morning * If calcium is still low will do further evaluation VTE prophylaxis with compression stockings. Chemoprophylaxis contraindicated secondary to active GI bleed. CODE STATUS: Full code Disposition: Admit to medical floor on telemetry. Colonoscopy planned on . - Mortality Measure Prognosis:: Good
[2020-03-08] MEDS ORDERED: Pantoprazole 40 MG Tab.CR PO SCH ×2 (06:00→21:00)
[2020-03-08] MEDS ORDERED: Polyethylene Glycol/Electrolytes 4,000 ML Bottle PO ONE ×2 (07:31→16:00)
--- NOTE | 2020-03-08 08:20 | PCM.PN ---
- General Info Date of Service: 03/08/20 Admission Dx/Problem (Free Text): Admission Diagnosis/Problem Admission Diagnosis/Problem Anemia Subjective Update: In to see Diony. He is lying in bed and reports he feels pretty good. He has not had any BMs since yesterday. Dr. Armendariz saw the patient and is planning colonoscopy and EGD tomorrow. He has a history of barretts esophagus and reportedly was supposed to have a yearly EGD performed, however he hasn't followed through on this. Dr. Armendariz will perform this as well. He will start his bowel prep this evening. No other patient concerns. Functional Status: Reports: Pain Controlled, Tolerating Diet (Clear liquid ), Ambulating, Urinating. Denies: New Symptoms - Review of Systems General: Reports: Weakness, Fatigue. Denies: Fever, Malaise, Chills HEENT: Reports: No Symptoms. Denies: Headaches, Sore Throat Pulmonary: Reports: No Symptoms. Denies: Shortness of Breath, Cough, Sputum, Wheezing Cardiovascular: Reports: No Symptoms. Denies: Chest Pain, Palpitations, Dyspnea on Exertion, Edema Gastrointestinal: Reports: No Symptoms. Denies: Abdominal Pain, Constipation, Diarrhea, Hematochezia, Melena, Nausea, Vomiting Genitourinary: Reports: No Symptoms. Denies: Pain Musculoskeletal: Reports: No Symptoms Skin: Reports: No Symptoms Neurological: Reports: No Symptoms. Denies: Confusion, Difficulty Walking, Gait Disturbance Psychiatric: Reports: No Symptoms - Patient Data Vitals - Most Recent: Last Vital Signs Temp 98.1 F 03/08/20 03:59 Pulse 70 03/08/20 08:01 Resp 20 03/08/20 08:01 BP 115/71 03/08/20 08:01 Pulse Ox 98 03/08/20 08:01 Weight - Most Recent: 304 lb 4.8 oz I&O - Last 24 Hours: Intake & Output 03/07/20 03/08/20 03/08/20 22:59 06:59 14:59 Intake Total 360 982 Output Total 1500 Balance 360 -518 Lab Results Last 24 Hours: Laboratory Results - last 24 hr 03/07/20 03/07/20 03/07/20 Range/Units 14:25 14:25 14:25 WBC 6.65 (4.23-9.07) K/mm3 RBC 3.82 L (4.63-6.08) M/mm3 Hgb 6.9 L* D (13.7-17.5) gm/dl Hct 24.7 L (40.1-51.0) % MCV 64.7 L D (79.0-92.2) fl MCH 18.1 L (25.7-32.2) pg MCHC 27.9 L (32.2-35.5) g/dl RDW Std Deviation 39.2 (35.1-43.9) fL Plt Count 396 H D (163-337) K/mm3 MPV 8.5 L (9.4-12.3) fl Neut % (Auto) 72.7 H (34.0-67.9) % Lymph % (Auto) 17.9 L (21.8-53.1) % [place] % (Auto) 6.9 (5.3-12.2) % Eos % (Auto) 1.4 (0.8-7.0) Baso % (Auto) 0.5 (0.1-1.2) % Neut # (Auto) 4.84 (1.78-5.38) K/mm3 Lymph # (Auto) 1.19 L (1.32-3.57) K/mm3 [place] # (Auto) 0.46 (0.30-0.82) K/mm3 Eos # (Auto) 0.09 (0.04-0.54) K/mm3 Baso # (Auto) 0.03 (0.01-0.08) K/mm3 Manual Slide Review Abnormal smear PT 10.7 (9.7-12.0) SECONDS INR 0.98 APTT 26 (22-31) SECONDS Sodium 138 (136-145) mEq/L Potassium 4.2 (3.5-5.1) mEq/L Chloride 104 (98-107) mEq/L Carbon Dioxide 24 (21-32) mEq/L Anion Gap 14.2 (5-15) BUN 11 (7-18) mg/dL Creatinine 1.1 (0.7-1.3) mg/dL Est Cr Clr Drug Dosing 92.17 mL/min Estimated GFR (MDRD) > 60 (>60) mL/min BUN/Creatinine Ratio 10.0 L (14-18) Glucose 94 (74-106) mg/dL Calcium 7.8 L (8.5-10.1) mg/dL Phosphorus (2.6-4.7) mg/dL Magnesium (1.8-2.4) mg/dl Iron (65-175) ug/dL TIBC (100-400) ug/dL % Saturation (20-55) % Transferrin (202-364) mg/dL Ferritin (26-388) ng/ml Total Bilirubin 0.7 (0.2-1.0) mg/dL AST 18 (15-37) U/L ALT 32 (16-63) U/L Alkaline Phosphatase 66 (46-116) U/L Total Protein 7.5 (6.4-8.2) g/dl Albumin 4.0 (3.4-5.0) g/dl Globulin 3.5 gm/dL Albumin/Globulin Ratio 1.1 (1-2) Blood Type Gel Antibody Screen Crossmatch 03/07/20 03/07/20 03/08/20 Range/Units 14:25 19:10 04:58 WBC 5.83 (4.23-9.07) K/mm3 RBC 4.37 L (4.63-6.08) M/mm3 Hgb 8.7 L D (13.7-17.5) gm/dl Hct 30.1 L (40.1-51.0) % MCV 68.9 L D (79.0-92.2) fl MCH 19.9 L (25.7-32.2) pg MCHC 28.9 L (32.2-35.5) g/dl RDW Std Deviation 52.9 H (35.1-43.9) fL Plt Count 356 H (163-337) K/mm3 MPV 9.4 (9.4-12.3) fl Neut % (Auto) 66.6 (34.0-67.9) % Lymph % (Auto) 21.4 L (21.8-53.1) % [place] % (Auto) 9.3 (5.3-12.2) % Eos % (Auto) 2.2 (0.8-7.0) Baso % (Auto) 0.2 (0.1-1.2) % Neut # (Auto) 3.88 (1.78-5.38) K/mm3 Lymph # (Auto) 1.25 L (1.32-3.57) K/mm3 [place] # (Auto) 0.54 (0.30-0.82) K/mm3 Eos # (Auto) 0.13 (0.04-0.54) K/mm3 Baso # (Auto) 0.01 (0.01-0.08) K/mm3 Manual Slide Review Abnormal smear PT (9.7-12.0) SECONDS INR APTT (22-31) SECONDS Sodium (136-145) mEq/L Potassium (3.5-5.1) mEq/L Chloride (98-107) mEq/L Carbon Dioxide (21-32) mEq/L Anion Gap (5-15) BUN (7-18) mg/dL Creatinine (0.7-1.3) mg/dL Est Cr Clr Drug Dosing mL/min Estimated GFR (MDRD) (>60) mL/min BUN/Creatinine Ratio (14-18) Glucose (74-106) mg/dL Calcium (8.5-10.1) mg/dL Phosphorus (2.6-4.7) mg/dL Magnesium (1.8-2.4) mg/dl Iron 25 L (65-175) ug/dL TIBC 394 (100-400) ug/dL % Saturation 6 L (20-55) % Transferrin 315 (202-364) mg/dL Ferritin 4 L (26-388) ng/ml Total Bilirubin (0.2-1.0) mg/dL AST (15-37) U/L ALT (16-63) U/L Alkaline Phosphatase (46-116) U/L Total Protein (6.4-8.2) g/dl Albumin (3.4-5.0) g/dl Globulin gm/dL Albumin/Globulin Ratio (1-2) Blood Type O POSITIVE Gel Antibody Screen Negative Crossmatch See Detail 03/08/20 Range/Units 04:58 WBC (4.23-9.07) K/mm3 RBC (4.63-6.08) M/mm3 Hgb (13.7-17.5) gm/dl Hct (40.1-51.0) % MCV (79.0-92.2) fl MCH (25.7-32.2) pg MCHC (32.2-35.5) g/dl RDW Std Deviation (35.1-43.9) fL Plt Count (163-337) K/mm3 MPV (9.4-12.3) fl Neut % (Auto) (34.0-67.9) % Lymph % (Auto) (21.8-53.1) % [place] % (Auto) (5.3-12.2) % Eos % (Auto) (0.8-7.0) Baso % (Auto) (0.1-1.2) % Neut # (Auto) (1.78-5.38) K/mm3 Lymph # (Auto) (1.32-3.57) K/mm3 [place] # (Auto) (0.30-0.82) K/mm3 Eos # (Auto) (0.04-0.54) K/mm3 Baso # (Auto) (0.01-0.08) K/mm3 Manual Slide Review PT (9.7-12.0) SECONDS INR APTT (22-31) SECONDS Sodium 140 (136-145) mEq/L Potassium 4.4 (3.5-5.1) mEq/L Chloride 105 (98-107) mEq/L Carbon Dioxide 26 (21-32) mEq/L Anion Gap 13.4 (5-15) BUN 9 (7-18) mg/dL Creatinine 1.0 (0.7-1.3) mg/dL Est Cr Clr Drug Dosing 101.39 mL/min Estimated GFR (MDRD) > 60 (>60) mL/min BUN/Creatinine Ratio 9.0 L (14-18) Glucose 96 (74-106) mg/dL Calcium 8.6 (8.5-10.1) mg/dL Phosphorus 4.5 (2.6-4.7) mg/dL Magnesium 2.0 (1.8-2.4) mg/dl Iron (65-175) ug/dL TIBC (100-400) ug/dL % Saturation (20-55) % Transferrin (202-364) mg/dL Ferritin (26-388) ng/ml Total Bilirubin 1.5 H (0.2-1.0) mg/dL AST 17 (15-37) U/L ALT 34 (16-63) U/L Alkaline Phosphatase 54 (46-116) U/L Total Protein 7.0 (6.4-8.2) g/dl Albumin 3.6 (3.4-5.0) g/dl Globulin 3.4 gm/dL Albumin/Globulin Ratio 1.1 (1-2) Blood Type Gel Antibody Screen Crossmatch Med Orders - Current: Current Medications Acetaminophen (Tylenol) 650 mg PO Q4H PRN PRN Reason: Pain (Mild 1-3)/fever Ondansetron HCl (Zofran) 4 mg IV Q4H PRN PRN Reason: Nausea/Vomiting Pantoprazole Sodium (Protonix) 40 mg PO ACBREAKFAST KAYLA Last Admin: 03/08/20 06:19 Dose: 40 mg Documented by: Discontinued Medications Lidocaine HCl (Xylocaine 2% Jelly) 10 ml MUCMEM ONETIME ONE Stop: 03/07/20 14:13 Last Admin: 03/07/20 18:09 Dose: 10 ml Documented by: Polyethylene Glycol/Electrolytes (Golytely) 4,000 ml PO ONETIME ONE Stop: 03/08/20 07:32 - Exam Quality Assessment: DVT Prophylaxis General: Alert, Oriented, Cooperative, No Acute Distress HEENT: Pupils Equal, Pupils Reactive, Mucous Membr. Moist/[place] Neck: Supple, Trachea Midline Lungs: Clear to Auscultation, Normal Respiratory Effort Cardiovascular: Regular Rate, Regular Rhythm GI/Abdominal Exam: Normal Bowel Sounds, Soft, Non-Tender, No Distention (Male) Exam: Deferred Back Exam: Normal Inspection, Full Range of Motion Extremities: Normal Inspection, Normal Range of Motion, Non-Tender, No Pedal Edema, Normal Capillary Refill Peripheral Pulses: 2+: Radial (L), Radial (R), Dorsalis Pedis (L), Dorsalis Pedis (R) Skin: Warm, Dry, Intact Neurological: No New Focal Deficit Psy/Mental Status: Alert, Normal Affect, Normal Mood Sepsis Event Note - Evaluation Sepsis Screening Result: No Definite Risk - Focused Exam Vital Signs: Vital Signs Temp Pulse Pulse Resp BP BP Pulse Ox 03/08/20 08:01 70 20 115/71 98 03/08/20 03:59 98.1 F 63 18 124/80 95 03/08/20 00:34 98 F 65 18 124/80 94 L 03/08/20 00:29 97.7 F 71 16 90/68 96 03/08/20 00:19 97.7 F 71 16 90/68 95 03/08/20 00:10 98.1 F 73 16 134/65 97 03/07/20 23:00 98.0 F 74 16 134/65 96 Date Exam was Performed: 03/08/20 Time Exam was Performed: 11:22 - Problem List & Annotations (1) Anemia SNOMED Code(s): 989238501 Code(s): D64.9 - ANEMIA, UNSPECIFIED Status: Acute Current Visit: Yes Qualifiers: Anemia type: iron deficiency Iron deficiency anemia type: chronic blood loss Qualified Code(s): D50.0 - Iron deficiency anemia secondary to blood loss (chronic) (2) Internal bleeding hemorrhoids SNOMED Code(s): 54791714 Code(s): K64.8 - OTHER HEMORRHOIDS Status: Acute Priority: High Current Visit: Yes (3) Lower GI bleed SNOMED Code(s): 84712509 Code(s): K92.2 - GASTROINTESTINAL HEMORRHAGE, UNSPECIFIED Status: Acute Priority: High Current Visit: Yes (4) History of Faulkner's esophagus SNOMED Code(s): 99029164410315931 Code(s): Z87.19 - PERSONAL HISTORY OF OTHER DISEASES OF THE DIGESTIVE SYSTEM Status: Chronic Priority: Medium Current Visit: No (5) Chewing tobacco use SNOMED Code(s): 44535637 Code(s): Z72.0 - TOBACCO USE Status: Chronic Priority: Medium Current Visit: Yes (6) Hypocalcemia SNOMED Code(s): 8855290 Code(s): E83.51 - HYPOCALCEMIA Status: Resolved Priority: High Current Visit: Yes (7) Obesity SNOMED Code(s): 327317548, 720351094 Code(s): E66.9 - OBESITY, UNSPECIFIED Status: Chronic Priority: Medium Current Visit: Yes Qualifiers: Obesity type: unspecified obesity type Obesity classification: adult class 3 (BMI >= 40) Serious obesity comorbidity presence: unspecified whether serious comorbidity present Body mass index: BMI 40.0-44.9 Qualified Code(s): E66.01 - Morbid (severe) obesity due to excess calories; Z68.41 - Body mass index (BMI) 40.0-44.9, adult - Problem List Review Problem List Initiated/Reviewed/Updated: Yes - Plan Plan:: Lower GI bleed Iron deficiency anemia and blood loss anemia Internal bleeding hemorrhoids Hemoglobin of 6.9 on admission History of significant rectal bleeding for the last 1 to 2 weeks. No previous colonoscopy, but upper endoscopy previously performed showing Faulkner's esophagus Iron 25, percent saturation 6, ferritin 4 No current weight loss, night sweats Hgb trend: 6.9-->8.7 (s/p 3 units) Plan * Transfused 3 units packed red blood cells * Clear liquid diet * Bowel prep with GoLYTELY today * Colonoscopy/EGD planned by Dr. Armendariz tomorrow * Follow hemoglobin closely * Re-check Hgb tonight GERD Obesity Hx/o Faulkner's Esophagus History of reflux and Faulkner esophagus Currently on omeprazole 20 mg at bedtime Plan * Protonix 40 mg * [employer] consult * EGD tomorrow to follow-up with prior Faulkner's esophagus dx Chewing tobacco use Reports one can of chewing tobacco use daily Plan * Nicotine patch * Cessation counseling S/P Hypocalcemia * Calcium 7.8-->8.6 * Albumin 4.0-->3.6 VTE prophylaxis: compression stockings. Chemoprophylaxis contraindicated se condary to active GI bleed. GI Prophylaxis: PPI CODE STATUS: Full code PCP: Ashley Mcdonald NP Disposition: Admit to medical floor on telemetry. Colonoscopy planned tomorrow. Discharge plan pending colonoscopy results.
--- NOTE | 2020-03-08 12:08 | PCM.CONSN ---
- General Info Date of Service: 03/08/20 Functional Status: Reports: Pain Controlled, Other (no further bowel movements or bleeding this AM) - Patient Data Vitals - Most Recent: Last Vital Signs Temp 36.7 C 03/08/20 03:59 Pulse 70 03/08/20 08:01 Resp 20 03/08/20 08:01 BP 115/71 03/08/20 08:01 Pulse Ox 98 03/08/20 08:01 Weight - Most Recent: 138.028 kg I&O - Last 24 Hours: Intake & Output 03/07/20 03/08/20 03/08/20 22:59 06:59 14:59 Intake Total 360 982 760 Output Total 1500 Balance 360 -518 760 Lab Results Last 24 Hours: Laboratory Results - last 24 hr 03/07/20 03/07/20 03/07/20 Range/Units 14:25 14:25 14:25 WBC 6.65 (4.23-9.07) K/mm3 RBC 3.82 L (4.63-6.08) M/mm3 Hgb 6.9 L* D (13.7-17.5) gm/dl Hct 24.7 L (40.1-51.0) % MCV 64.7 L D (79.0-92.2) fl MCH 18.1 L (25.7-32.2) pg MCHC 27.9 L (32.2-35.5) g/dl RDW Std Deviation 39.2 (35.1-43.9) fL Plt Count 396 H D (163-337) K/mm3 MPV 8.5 L (9.4-12.3) fl Neut % (Auto) 72.7 H (34.0-67.9) % Lymph % (Auto) 17.9 L (21.8-53.1) % [place] % (Auto) 6.9 (5.3-12.2) % Eos % (Auto) 1.4 (0.8-7.0) Baso % (Auto) 0.5 (0.1-1.2) % Neut # (Auto) 4.84 (1.78-5.38) K/mm3 Lymph # (Auto) 1.19 L (1.32-3.57) K/mm3 [place] # (Auto) 0.46 (0.30-0.82) K/mm3 Eos # (Auto) 0.09 (0.04-0.54) K/mm3 Baso # (Auto) 0.03 (0.01-0.08) K/mm3 Manual Slide Review Abnormal smear PT 10.7 (9.7-12.0) SECONDS INR 0.98 APTT 26 (22-31) SECONDS Sodium 138 (136-145) mEq/L Potassium 4.2 (3.5-5.1) mEq/L Chloride 104 (98-107) mEq/L Carbon Dioxide 24 (21-32) mEq/L Anion Gap 14.2 (5-15) BUN 11 (7-18) mg/dL Creatinine 1.1 (0.7-1.3) mg/dL Est Cr Clr Drug Dosing 92.17 mL/min Estimated GFR (MDRD) > 60 (>60) mL/min BUN/Creatinine Ratio 10.0 L (14-18) Glucose 94 (74-106) mg/dL Calcium 7.8 L (8.5-10.1) mg/dL Phosphorus (2.6-4.7) mg/dL Magnesium (1.8-2.4) mg/dl Iron (65-175) ug/dL TIBC (100-400) ug/dL % Saturation (20-55) % Transferrin (202-364) mg/dL Ferritin (26-388) ng/ml Total Bilirubin 0.7 (0.2-1.0) mg/dL AST 18 (15-37) U/L ALT 32 (16-63) U/L Alkaline Phosphatase 66 (46-116) U/L Total Protein 7.5 (6.4-8.2) g/dl Albumin 4.0 (3.4-5.0) g/dl Globulin 3.5 gm/dL Albumin/Globulin Ratio 1.1 (1-2) Blood Type Gel Antibody Screen Crossmatch 03/07/20 03/07/20 03/08/20 Range/Units 14:25 19:10 04:58 WBC 5.83 (4.23-9.07) K/mm3 RBC 4.37 L (4.63-6.08) M/mm3 Hgb 8.7 L D (13.7-17.5) gm/dl Hct 30.1 L (40.1-51.0) % MCV 68.9 L D (79.0-92.2) fl MCH 19.9 L (25.7-32.2) pg MCHC 28.9 L (32.2-35.5) g/dl RDW Std Deviation 52.9 H (35.1-43.9) fL Plt Count 356 H (163-337) K/mm3 MPV 9.4 (9.4-12.3) fl Neut % (Auto) 66.6 (34.0-67.9) % Lymph % (Auto) 21.4 L (21.8-53.1) % [place] % (Auto) 9.3 (5.3-12.2) % Eos % (Auto) 2.2 (0.8-7.0) Baso % (Auto) 0.2 (0.1-1.2) % Neut # (Auto) 3.88 (1.78-5.38) K/mm3 Lymph # (Auto) 1.25 L (1.32-3.57) K/mm3 [place] # (Auto) 0.54 (0.30-0.82) K/mm3 Eos # (Auto) 0.13 (0.04-0.54) K/mm3 Baso # (Auto) 0.01 (0.01-0.08) K/mm3 Manual Slide Review Abnormal smear PT (9.7-12.0) SECONDS INR APTT (22-31) SECONDS Sodium (136-145) mEq/L Potassium (3.5-5.1) mEq/L Chloride (98-107) mEq/L Carbon Dioxide (21-32) mEq/L Anion Gap (5-15) BUN (7-18) mg/dL Creatinine (0.7-1.3) mg/dL Est Cr Clr Drug Dosing mL/min Estimated GFR (MDRD) (>60) mL/min BUN/Creatinine Ratio (14-18) Glucose (74-106) mg/dL Calcium (8.5-10.1) mg/dL Phosphorus (2.6-4.7) mg/dL Magnesium (1.8-2.4) mg/dl Iron 25 L (65-175) ug/dL TIBC 394 (100-400) ug/dL % Saturation 6 L (20-55) % Transferrin 315 (202-364) mg/dL Ferritin 4 L (26-388) ng/ml Total Bilirubin (0.2-1.0) mg/dL AST (15-37) U/L ALT (16-63) U/L Alkaline Phosphatase (46-116) U/L Total Protein (6.4-8.2) g/dl Albumin (3.4-5.0) g/dl Globulin gm/dL Albumin/Globulin Ratio (1-2) Blood Type O POSITIVE Gel Antibody Screen Negative Crossmatch See Detail 03/08/20 Range/Units 04:58 WBC (4.23-9.07) K/mm3 RBC (4.63-6.08) M/mm3 Hgb (13.7-17.5) gm/dl Hct (40.1-51.0) % MCV (79.0-92.2) fl MCH (25.7-32.2) pg MCHC (32.2-35.5) g/dl RDW Std Deviation (35.1-43.9) fL Plt Count (163-337) K/mm3 MPV (9.4-12.3) fl Neut % (Auto) (34.0-67.9) % Lymph % (Auto) (21.8-53.1) % [place] % (Auto) (5.3-12.2) % Eos % (Auto) (0.8-7.0) Baso % (Auto) (0.1-1.2) % Neut # (Auto) (1.78-5.38) K/mm3 Lymph # (Auto) (1.32-3.57) K/mm3 [place] # (Auto) (0.30-0.82) K/mm3 Eos # (Auto) (0.04-0.54) K/mm3 Baso # (Auto) (0.01-0.08) K/mm3 Manual Slide Review PT (9.7-12.0) SECONDS INR APTT (22-31) SECONDS Sodium 140 (136-145) mEq/L Potassium 4.4 (3.5-5.1) mEq/L Chloride 105 (98-107) mEq/L Carbon Dioxide 26 (21-32) mEq/L Anion Gap 13.4 (5-15) BUN 9 (7-18) mg/dL Creatinine 1.0 (0.7-1.3) mg/dL Est Cr Clr Drug Dosing 101.39 mL/min Estimated GFR (MDRD) > 60 (>60) mL/min BUN/Creatinine Ratio 9.0 L (14-18) Glucose 96 (74-106) mg/dL Calcium 8.6 (8.5-10.1) mg/dL Phosphorus 4.5 (2.6-4.7) mg/dL Magnesium 2.0 (1.8-2.4) mg/dl Iron (65-175) ug/dL TIBC (100-400) ug/dL % Saturation (20-55) % Transferrin (202-364) mg/dL Ferritin (26-388) ng/ml Total Bilirubin 1.5 H (0.2-1.0) mg/dL AST 17 (15-37) U/L ALT 34 (16-63) U/L Alkaline Phosphatase 54 (46-116) U/L Total Protein 7.0 (6.4-8.2) g/dl Albumin 3.6 (3.4-5.0) g/dl Globulin 3.4 gm/dL Albumin/Globulin Ratio 1.1 (1-2) Blood Type Gel Antibody Screen Crossmatch Med Orders - Current: Current Medications Acetaminophen (Tylenol) 650 mg PO Q4H PRN PRN Reason: Pain (Mild 1-3)/fever Miscellaneous Information (Remove Patch) 1 ea TRDERM Q24H [facility] Nicotine (Habitrol) 14 mg TRDERM DAILY [facility] Ondansetron HCl (Zofran) 4 mg IV Q4H PRN PRN Reason: Nausea/Vomiting Pantoprazole Sodium (Protonix) 40 mg PO BEDTIME [facility] Discontinued Medications Lidocaine HCl (Xylocaine 2% Jelly) 10 ml MUCMEM ONETIME ONE Stop: 03/07/20 14:13 Last Admin: 03/07/20 18:09 Dose: 10 ml Documented by: Pantoprazole Sodium (Protonix) 40 mg PO ACBREAKFAST [facility] Last Admin: 03/08/20 06:19 Dose: 40 mg Documented by: Polyethylene Glycol/Electrolytes (Golytely) 4,000 ml PO ONETIME ONE Stop: 03/08/20 07:32 - Exam Quality Assessment: No: Supplemental Oxygen General: Alert Lungs: Normal Respiratory Effort GI/Abdominal Exam: Soft, Non-Tender, No Distention Sepsis Event Note - Evaluation Sepsis Screening Result: No Definite Risk - Focused Exam Vital Signs: Vital Signs Temp Pulse Pulse Resp BP BP Pulse Ox 03/08/20 08:01 70 20 115/71 98 03/08/20 03:59 36.7 C 63 18 124/80 95 03/08/20 00:34 36.6 C 65 18 124/80 94 L 03/08/20 00:29 36.5 C 71 16 90/68 96 03/08/20 00:19 36.5 C 71 16 90/68 95 03/08/20 00:10 36.7 C 73 16 134/65 97 Date Exam was Performed: 03/08/20 Time Exam was Performed: 17:25 Consult PN Assessment/Plan Procedures: Procedures ASSAY THYROID STIM HORMONE (04/09/18) COMPLETE CBC AUTOMATED (04/09/18) COMPREHEN METABOLIC PANEL (04/09/18) EGD BIOPSY SINGLE/MULTIPLE (05/13/18) GLYCOSYLATED HEMOGLOBIN TEST (04/09/18) LIPID PANEL (04/09/18) ROUTINE VENIPUNCTURE (04/09/18) URINALYSIS AUTO W/SCOPE (04/09/18) (1) Lower GI bleed SNOMED Code(s): 71851974 Code(s): K92.2 - GASTROINTESTINAL HEMORRHAGE, UNSPECIFIED Priority: High Current Visit: Yes (2) History of Faulkner's esophagus SNOMED Code(s): 73651187044464864 Code(s): Z87.19 - PERSONAL HISTORY OF OTHER DISEASES OF THE DIGESTIVE SYSTEM Priority: Medium Current Visit: No Problem List Initiated/Reviewed/Updated: Yes My Orders Last 24 Hours: My Active Orders 03/08/20 09:56 Schedule Procedure [COMM] Routine Plan: 39 y/o gentleman with rectal bleeding. minimally symptomatic, so blood loss is likely more chronic - continue clears - prep of golytely - plan for EGD and colonoscopy tomorrow. Discussed risks of perforation, consent obtained. - NPO after midnight - IVF resuscitation while in the hospital Nani Womack MD General surgery
--- NOTE | 2020-03-08 12:49 | PCM.PREANE ---
Preanesthetic Assessment - Anesthesia/Transfusion/Family Hx Anesthesia History: Prior Anesthesia Without Reaction Family History of Anesthesia Reaction: No Transfusion History: No Prior Transfusion(s) Intubation History: Unknown - Review of Systems General: No Symptoms Pulmonary: No Symptoms (Smoker: quit October 2019: chews 1can per day/ETOH: never) Cardiovascular: No Symptoms, Dyspnea on Exertion Gastrointestinal: No Symptoms (GERD), Hematochezia Neurological: No Symptoms Other: Reports: None (received 3 units of PRBC's 03/07/2020 with starting HGB= 6.65) - Physical Assessment NPO Status Date: 03/07/20 NPO Status Time: 12:00 Vital Signs: Last Vital Signs Temp 36.7 C 03/08/20 03:59 Pulse 70 03/08/20 08:01 Resp 20 03/08/20 08:01 BP 115/71 03/08/20 08:01 Pulse Ox 98 03/08/20 08:01 Height: 1.78 m Weight: 138.028 kg ASA Class: 3 Mental Status: Alert & Oriented x3 Airway Class: Mallampati = 2 Dentition: Reports: Normal Dentition, Caries Thyro-Mental Finger Breadths: 4 Mouth Opening Finger Breadths: 3 ROM/Head Extension: Full Lungs: Clear to Auscultation, Normal Respiratory Effort Cardiovascular: Regular Rate, Regular Rhythm, No Murmurs - Lab Values: Laboratory Last Values WBC 5.83 K/mm3 (4.23-9.07) 03/08/20 04:58 RBC 4.37 M/mm3 (4.63-6.08) L 03/08/20 04:58 Hgb 8.7 gm/dl (13.7-17.5) L D 03/08/20 04:58 Hct 30.1 % (40.1-51.0) L 03/08/20 04:58 MCV 68.9 fl (79.0-92.2) L D 03/08/20 04:58 MCH 19.9 pg (25.7-32.2) L 03/08/20 04:58 MCHC 28.9 g/dl (32.2-35.5) L 03/08/20 04:58 RDW Std Deviation 52.9 fL (35.1-43.9) H 03/08/20 04:58 Plt Count 356 K/mm3 (163-337) H 03/08/20 04:58 MPV 9.4 fl (9.4-12.3) 03/08/20 04:58 Neut % (Auto) 66.6 % (34.0-67.9) 03/08/20 04:58 Lymph % (Auto) 21.4 % (21.8-53.1) L 03/08/20 04:58 [place] % (Auto) 9.3 % (5.3-12.2) 03/08/20 04:58 Eos % (Auto) 2.2 (0.8-7.0) 03/08/20 04:58 Baso % (Auto) 0.2 % (0.1-1.2) 03/08/20 04:58 Neut # (Auto) 3.88 K/mm3 (1.78-5.38) 03/08/20 04:58 Lymph # (Auto) 1.25 K/mm3 (1.32-3.57) L 03/08/20 04:58 [place] # (Auto) 0.54 K/mm3 (0.30-0.82) 03/08/20 04:58 Eos # (Auto) 0.13 K/mm3 (0.04-0.54) 03/08/20 04:58 Baso # (Auto) 0.01 K/mm3 (0.01-0.08) 03/08/20 04:58 Manual Slide Review Abnormal smear 03/08/20 04:58 PT 10.7 SECONDS (9.7-12.0) 03/07/20 14:25 INR 0.98 03/07/20 14:25 APTT 26 SECONDS (22-31) 03/07/20 14:25 Sodium 140 mEq/L (136-145) 03/08/20 04:58 Potassium 4.4 mEq/L (3.5-5.1) 03/08/20 04:58 Chloride 105 mEq/L (98-107) 03/08/20 04:58 Carbon Dioxide 26 mEq/L (21-32) 03/08/20 04:58 Anion Gap 13.4 (5-15) 03/08/20 04:58 BUN 9 mg/dL (7-18) 03/08/20 04:58 Creatinine 1.0 mg/dL (0.7-1.3) 03/08/20 04:58 Est Cr Clr Drug Dosing 101.39 mL/min 03/08/20 04:58 Estimated GFR (MDRD) > 60 mL/min (>60) 03/08/20 04:58 BUN/Creatinine Ratio 9.0 (14-18) L 03/08/20 04:58 Glucose 96 mg/dL (74-106) 03/08/20 04:58 Calcium 8.6 mg/dL (8.5-10.1) 03/08/20 04:58 Phosphorus 4.5 mg/dL (2.6-4.7) 03/08/20 04:58 Magnesium 2.0 mg/dl (1.8-2.4) 03/08/20 04:58 Iron 25 ug/dL (65-175) L 03/07/20 19:10 TIBC 394 ug/dL (100-400) 03/07/20 19:10 % Saturation 6 % (20-55) L 03/07/20 19:10 Transferrin 315 mg/dL (202-364) 03/07/20 19:10 Ferritin 4 ng/ml (26-388) L 03/07/20 19:10 Total Bilirubin 1.5 mg/dL (0.2-1.0) H 03/08/20 04:58 AST 17 U/L (15-37) 03/08/20 04:58 ALT 34 U/L (16-63) 03/08/20 04:58 Alkaline Phosphatase 54 U/L (46-116) 03/08/20 04:58 Total Protein 7.0 g/dl (6.4-8.2) 03/08/20 04:58 Albumin 3.6 g/dl (3.4-5.0) 03/08/20 04:58 Globulin 3.4 gm/dL 03/08/20 04:58 Albumin/Globulin Ratio 1.1 (1-2) 03/08/20 04:58 Blood Type O POSITIVE 03/07/20 14:25 Gel Antibody Screen Negative 03/07/20 14:25 Crossmatch See Detail 03/07/20 14:25 Above labs reviewed and noted and within acceptable ranges to proceed with s cheduled procedure. - Allergies Allergies/Adverse Reactions: Allergies Allergy/AdvReac Type Severity Reaction Status Date / Time apple Allergy Other Verified 03/07/20 20:35 - Anesthesia Plan Pre-Op Medication Ordered: None - Acknowledgements Anesthesia Type Planned: MAC Pt an Appropriate Candidate for the Planned Anesthesia: Yes Alternatives and Risks of Anesthesia Discussed w Pt/Guardian: Yes Pt/Guardian Understands and Agrees with Anesthesia Plan: Yes PreAnesthesia Questionnaire Gastrointestinal History: Reports: GERD, Other (See Below) Other Gastrointestinal History: barretts esophagus Endocrine/Metabolic History: Reports: Obesity/BMI 30+ - Infectious Disease History Infectious Disease History: Reports: Chicken Pox - Past Surgical History GI Surgical History: Reports: EGD, Hernia, Inguinal - SUBSTANCE USE Smoking Status *Q: Current Every Day Smoker Tobacco Use Within Last Twelve Months: Smokeless Tobacco Recreational Drug Use History: No - HOME MEDS Home Medications: Home Meds Omeprazole 20 mg PO DAILY 05/12/18 [History] - CURRENT (IN HOUSE) MEDS Current Meds: Current Medications Acetaminophen (Tylenol) 650 mg PO Q4H PRN PRN Reason: Pain (Mild 1-3)/fever Miscellaneous Information (Remove Patch) 1 ea TRDERM Q24H [facility] Nicotine (Habitrol) 14 mg TRDERM DAILY [facility] Ondansetron HCl (Zofran) 4 mg IV Q4H PRN PRN Reason: Nausea/Vomiting Pantoprazole Sodium (Protonix) 40 mg PO BEDTIME [facility] Discontinued Medications Lidocaine HCl (Xylocaine 2% Jelly) 10 ml MUCMEM ONETIME ONE Stop: 03/07/20 14:13 Last Admin: 03/07/20 18:09 Dose: 10 ml Documented by: Pantoprazole Sodium (Protonix) 40 mg PO ACBREAKFAST [facility] Last Admin: 03/08/20 06:19 Dose: 40 mg Documented by: Polyethylene Glycol/Electrolytes (Golytely) 4,000 ml PO ONETIME ONE Stop: 03/08/20 07:32
[2020-03-08] MEDS: Nicotine 14 MG/24 Hr Patch TRDERM SCH (13:48)
[2020-03-09] MEDS: Nicotine 14 MG/24 Hr Patch TRDERM SCH (06:21)
--- NOTE | 2020-03-09 07:14 | PCM.PN ---
- General Info Date of Service: 03/09/20 Admission Dx/Problem (Free Text): Admission Diagnosis/Problem Admission Diagnosis/Problem Anemia Functional Status: Reports: Pain Controlled, Tolerating Diet, Ambulating, Urinating, New Symptoms (Rectal pain 2/2 hemorrhoid banding ) - Review of Systems General: Reports: Weakness, Fatigue. Denies: Fever, Malaise, Chills HEENT: Reports: No Symptoms. Denies: Headaches, Sore Throat Pulmonary: Reports: No Symptoms. Denies: Shortness of Breath, Pleuritic Chest Pain, Cough, Sputum, Wheezing Cardiovascular: Reports: No Symptoms. Denies: Chest Pain, Palpitations, Edema, Other Gastrointestinal: Reports: Diarrhea, Other (Rectal pain and feeling of need to defecate). Denies: Abdominal Pain, Constipation, Nausea, Vomiting Genitourinary: Reports: No Symptoms. Denies: Pain Musculoskeletal: Reports: No Symptoms Skin: Reports: No Symptoms. Denies: Cyanosis Neurological: Reports: No Symptoms. Denies: Confusion, Difficulty Walking, Gait Disturbance Psychiatric: Reports: No Symptoms - Patient Data Vitals - Most Recent: Last Vital Signs Temp 97.9 F 03/08/20 19:58 Pulse 61 03/09/20 05:10 Resp 18 03/09/20 05:10 BP 120/74 03/09/20 05:10 Pulse Ox 98 03/09/20 05:10 Weight - Most Recent: 299 lb 8 oz I&O - Last 24 Hours: Intake & Output 03/08/20 03/09/20 03/09/20 22:59 06:59 14:59 Intake Total 1989 800 Output Total 1999 Balance -10 800 Lab Results Last 24 Hours: Laboratory Results - last 24 hr 03/08/20 03/08/20 03/08/20 Range/Units 18:09 22:18 22:20 WBC (4.23-9.07) K/mm3 RBC (4.63-6.08) M/mm3 Hgb 8.7 L 8.9 L (13.7-17.5) gm/dl Hct 29.8 L 30.6 L (40.1-51.0) % MCV (79.0-92.2) fl MCH (25.7-32.2) pg MCHC (32.2-35.5) g/dl RDW Std Deviation (35.1-43.9) fL Plt Count (163-337) K/mm3 MPV (9.4-12.3) fl Neut % (Auto) (34.0-67.9) % Lymph % (Auto) (21.8-53.1) % [place] % (Auto) (5.3-12.2) % Eos % (Auto) (0.8-7.0) Baso % (Auto) (0.1-1.2) % Neut # (Auto) (1.78-5.38) K/mm3 Lymph # (Auto) (1.32-3.57) K/mm3 [place] # (Auto) (0.30-0.82) K/mm3 Eos # (Auto) (0.04-0.54) K/mm3 Baso # (Auto) (0.01-0.08) K/mm3 Sodium (136-145) mEq/L Potassium (3.5-5.1) mEq/L Chloride (98-107) mEq/L Carbon Dioxide (21-32) mEq/L Anion Gap (5-15) BUN (7-18) mg/dL Creatinine (0.7-1.3) mg/dL Est Cr Clr Drug Dosing mL/min Estimated GFR (MDRD) (>60) mL/min BUN/Creatinine Ratio (14-18) Glucose (74-106) mg/dL Calcium (8.5-10.1) mg/dL Magnesium (1.8-2.4) mg/dl Total Bilirubin (0.2-1.0) mg/dL AST (15-37) U/L ALT (16-63) U/L Alkaline Phosphatase (46-116) U/L Total Protein (6.4-8.2) g/dl Albumin (3.4-5.0) g/dl Globulin gm/dL Albumin/Globulin Ratio (1-2) SARS Virus RNA (PCR) Negative (NEGATIVE) 03/09/20 03/09/20 Range/Units 05:30 05:30 WBC 5.87 (4.23-9.07) K/mm3 RBC 4.08 L (4.63-6.08) M/mm3 Hgb 8.2 L (13.7-17.5) gm/dl Hct 28.2 L (40.1-51.0) % MCV 69.1 L (79.0-92.2) fl MCH 20.1 L (25.7-32.2) pg MCHC 29.1 L (32.2-35.5) g/dl RDW Std Deviation 52.1 H (35.1-43.9) fL Plt Count 355 H (163-337) K/mm3 MPV 9.6 (9.4-12.3) fl Neut % (Auto) 71.0 H (34.0-67.9) % Lymph % (Auto) 17.5 L (21.8-53.1) % [place] % (Auto) 8.7 (5.3-12.2) % Eos % (Auto) 2.0 (0.8-7.0) Baso % (Auto) 0.3 (0.1-1.2) % Neut # (Auto) 4.16 (1.78-5.38) K/mm3 Lymph # (Auto) 1.03 L (1.32-3.57) K/mm3 [place] # (Auto) 0.51 (0.30-0.82) K/mm3 Eos # (Auto) 0.12 (0.04-0.54) K/mm3 Baso # (Auto) 0.02 (0.01-0.08) K/mm3 Sodium 142 (136-145) mEq/L Potassium 3.9 (3.5-5.1) mEq/L Chloride 105 (98-107) mEq/L Carbon Dioxide 26 (21-32) mEq/L Anion Gap 14.9 (5-15) BUN 8 (7-18) mg/dL Creatinine 0.9 (0.7-1.3) mg/dL Est Cr Clr Drug Dosing 112.65 mL/min Estimated GFR (MDRD) > 60 (>60) mL/min BUN/Creatinine Ratio 8.9 L (14-18) Glucose 102 (74-106) mg/dL Calcium 8.5 (8.5-10.1) mg/dL Magnesium 2.1 (1.8-2.4) mg/dl Total Bilirubin 1.6 H (0.2-1.0) mg/dL AST 20 (15-37) U/L ALT 34 (16-63) U/L Alkaline Phosphatase 56 (46-116) U/L Total Protein 6.9 (6.4-8.2) g/dl Albumin 3.6 (3.4-5.0) g/dl Globulin 3.3 gm/dL Albumin/Globulin Ratio 1.1 (1-2) SARS Virus RNA (PCR) (NEGATIVE) Med Orders - Current: Current Medications Acetaminophen (Tylenol) 650 mg PO Q4H PRN PRN Reason: Pain (Mild 1-3)/fever Miscellaneous Information (Remove Patch) 1 ea TRDERM Q24H [facility] Nicotine (Habitrol) 14 mg TRDERM DAILY [facility] Last Admin: 03/09/20 06:21 Dose: 14 mg Documented by: Ondansetron HCl (Zofran) 4 mg IV Q4H PRN PRN Reason: Nausea/Vomiting Pantoprazole Sodium (Protonix) 40 mg PO BEDTIME [facility] Last Admin: 03/08/20 20:09 Dose: 40 mg Documented by: Discontinued Medications Lidocaine HCl (Xylocaine 2% Jelly) 10 ml MUCMEM ONETIME ONE Stop: 03/07/20 14:13 Last Admin: 03/07/20 18:09 Dose: 10 ml Documented by: Pantoprazole Sodium (Protonix) 40 mg PO ACBREAKFAST [facility] Last Admin: 03/08/20 06:19 Dose: 40 mg Documented by: Polyethylene Glycol/Electrolytes (Golytely) 4,000 ml PO ONETIME ONE Stop: 03/08/20 07:32 Last Admin: 03/08/20 14:21 Dose: Not Given Documented by: Polyethylene Glycol/Electrolytes (Golytely) 4,000 ml PO ONETIME ONE Stop: 03/08/20 16:01 Last Admin: 03/08/20 17:05 Dose: 4,000 ml Documented by: - Exam Quality Assessment: DVT Prophylaxis General: Alert, Oriented, Cooperative, No Acute Distress HEENT: Pupils Equal, Pupils Reactive Neck: Supple, Trachea Midline Lungs: Clear to Auscultation, Normal Respiratory Effort Cardiovascular: Regular Rate, Regular Rhythm GI/Abdominal Exam: Normal Bowel Sounds, Soft, Non-Tender, No Distention (Male) Exam: Deferred Back Exam: Normal Inspection, Full Range of Motion Extremities: Normal Inspection, Normal Range of Motion, Non-Tender, No Pedal Edema, Normal Capillary Refill Skin: Warm, Dry, Intact Neurological: No New Focal Deficit Psy/Mental Status: Alert Sepsis Event Note - Evaluation Sepsis Screening Result: No Definite Risk - Focused Exam Vital Signs: Vital Signs Temp Pulse Resp BP Pulse Ox 03/09/20 05:10 61 18 120/74 98 03/08/20 19:58 97.9 F 73 16 150/84 H 98 Date Exam was Performed: 03/09/20 Time Exam was Performed: 14:54 - Problem List & Annotations (1) Anemia SNOMED Code(s): 197222903 Code(s): D64.9 - ANEMIA, UNSPECIFIED Status: Acute Current Visit: Yes Qualifiers: Anemia type: iron deficiency Iron deficiency anemia type: chronic blood loss Qualified Code(s): D50.0 - Iron deficiency anemia secondary to blood loss (chronic) (2) Internal bleeding hemorrhoids SNOMED Code(s): 71766426 Code(s): K64.8 - OTHER HEMORRHOIDS Status: Acute Priority: High Current Visit: Yes (3) Lower GI bleed SNOMED Code(s): 16095741 Code(s): K92.2 - GASTROINTESTINAL HEMORRHAGE, UNSPECIFIED Status: Acute Priority: High Current Visit: Yes (4) History of Faulkner's esophagus SNOMED Code(s): 56844055684855467 Code(s): Z87.19 - PERSONAL HISTORY OF OTHER DISEASES OF THE DIGESTIVE SYSTEM Status: Chronic Priority: Medium Current Visit: No (5) Chewing tobacco use SNOMED Code(s): 21755006 Code(s): Z72.0 - TOBACCO USE Status: Chronic Priority: Medium Current Visit: Yes (6) Hypocalcemia SNOMED Code(s): 2695237 Code(s): E83.51 - HYPOCALCEMIA Status: Resolved Priority: High Current Visit: Yes (7) Obesity SNOMED Code(s): 652761499, 248362493 Code(s): E66.9 - OBESITY, UNSPECIFIED Status: Chronic Priority: Medium Current Visit: Yes Qualifiers: Obesity type: unspecified obesity type Obesity classification: adult class 3 (BMI >= 40) Serious obesity comorbidity presence: unspecified whether serious comorbidity present Body mass index: BMI 40.0-44.9 Qualified Code(s): E66.01 - Morbid (severe) obesity due to excess calories; Z68.41 - Body mass index (BMI) 40.0-44.9, adult (8) S/P colonoscopy SNOMED Code(s): 071420067916, 121555453, 359863483203 Code(s): Z98.890 - OTHER SPECIFIED POSTPROCEDURAL STATES Status: Acute Priority: High Current Visit: Yes (9) Abnormal findings on esophagogastroduodenoscopy (EGD) SNOMED Code(s): 721521707, 755647556 Code(s): R19.8 - OTH SYMPTOMS AND SIGNS INVOLVING THE DGSTV SYS AND ABDOMEN Status: Acute Priority: High Current Visit: Yes (10) Abnormal colonoscopy SNOMED Code(s): 768230085 Code(s): R93.3 - ABNORMAL FINDINGS ON DX IMAGING OF PRT DIGESTIVE TRACT Status: Acute Priority: High Current Visit: Yes - Problem List Review Problem List Initiated/Reviewed/Updated: Yes - My Orders Last 24 Hours: My Active Orders 03/08/20 09:30 Nicotine [Habitrol] 14 mg TRDERM DAILY 03/08/20 11:18 Consult to [employer] Worker [CONS] Routine 03/08/20 21:00 Pantoprazole [ProTONIX] 40 mg PO BEDTIME 03/09/20 05:30 CBC WITH AUTO DIFF [HEME] AM 03/09/20 Breakfast NPO After Midnight [Nothing per Oral After Midnight Diet] [DIET] 03/09/20 09:00 Remove Patch 1 ea TRDERM Q24H - Plan Plan:: Lower GI bleed Iron deficiency anemia and blood loss anemia Internal bleeding hemorrhoids Abnormal colonoscopy Hemoglobin of 6.9 on admission History of significant rectal bleeding for the last 1 to 2 weeks. No previous colonoscopy, but upper endoscopy previously performed showing Faulkner's esophagus Iron 25, percent saturation 6, ferritin 4 No current weight loss, night sweats Hgb trend: 6.9-->8.7 (s/p 3 units) -->8.9-->8.2 S/P colonoscopy with Dr. Armendariz on 03/09/20: Internal hemorrhoids with external component, grade 3 - four hemorrhoid bands placed Reports rectal pain likely 2/2 hemorrhoid banding Plan * Transfused 3 units packed red blood cells * Regular diet * Re-check Hgb in AM * Sitz baths * Hydrocortisone suppositories * Semethicone for bloating * Follow-up with Dr. Armendariz 2 weeks after discharge * Pathology pending * Supplement iron GERD Obesity Faulkner's Esophagus Abnormal EGD History of reflux and Faulkner esophagus Currently on omeprazole 20 mg at bedtime EGD on 03/09/20 showed long (13cm) segment of Faulkner's esophagus; hiatal hernia, duodenitis, gastritis; antral polyps Multiple biopsies taken Plan * Contiue Protonix 40 mg * [employer] Worker consult * Follow-up with Dr. Armendariz 2 weeks after discharge * [employer] on importance of discontinuing chewing tobacco * Pathology pending Chewing tobacco use Reports one can of chewing tobacco use daily Plan * Nicotine patch * Cessation counseling S/P Hypocalcemia * Calcium 7.8-->8.6 * Albumin 4.0-->3.6 VTE prophylaxis: compression stockings. Chemoprophylaxis contraindicated secondary to active GI bleed. GI Prophylaxis: PPI CODE STATUS: Full code PCP: Ashley Mcdonald NP Disposition: Admit to medical floor on telemetry. Likely discharge tomorrow.
[2020-03-09] MEDS ORDERED: Lactated Ringers 1,000 ML ONE (07:34)
[2020-03-09] MEDS ORDERED: Midazolam 1 MG/ML 2 ML SDV ONE (07:35)
[2020-03-09] MEDS ORDERED: fentaNYL 100 MCG/2 ML SDV ONE (07:35)
[2020-03-09] MEDS ORDERED: Ketamine 500 mg/10 ML MDV ONE (07:35)
[2020-03-09] MEDS ORDERED: Propofol 200 MG/20 ML SDV ONE ×2 (07:35→07:40)
[2020-03-09] MEDS ORDERED: Lidocaine 1% 4 ML ONE (07:41)
[2020-03-09] MEDS ORDERED: Glycopyrrolate 0.2 MG/ML SDV ONE (08:18)
--- NOTE | 2020-03-09 08:59 | PCM.SURGPN ---
- General Info Date of Service: 03/09/20 Functional Status: Reports: Pain Controlled, Urinating, Other (successfully had colon prep. Some bleeding with the bowel movements) - Patient Data Vitals - Most Recent: Last Vital Signs Temp 36.6 C 03/08/20 19:58 Pulse 70 03/09/20 07:36 Resp 20 03/09/20 07:36 BP 132/83 03/09/20 07:36 Pulse Ox 95 03/09/20 07:36 Weight - Most Recent: 135.851 kg I&O - Last 24 Hours: Intake & Output 03/08/20 03/09/20 03/09/20 22:59 06:59 14:59 Intake Total 1989 800 Output Total 1999 Balance -10 800 Lab Results Last 24 Hrs: Laboratory Results - last 24 hr 03/08/20 03/08/20 03/08/20 Range/Units 18:09 22:18 22:20 WBC (4.23-9.07) K/mm3 RBC (4.63-6.08) M/mm3 Hgb 8.7 L 8.9 L (13.7-17.5) gm/dl Hct 29.8 L 30.6 L (40.1-51.0) % MCV (79.0-92.2) fl MCH (25.7-32.2) pg MCHC (32.2-35.5) g/dl RDW Std Deviation (35.1-43.9) fL Plt Count (163-337) K/mm3 MPV (9.4-12.3) fl Neut % (Auto) (34.0-67.9) % Lymph % (Auto) (21.8-53.1) % Daniels % (Auto) (5.3-12.2) % Eos % (Auto) (0.8-7.0) Baso % (Auto) (0.1-1.2) % Neut # (Auto) (1.78-5.38) K/mm3 Lymph # (Auto) (1.32-3.57) K/mm3 Daniels # (Auto) (0.30-0.82) K/mm3 Eos # (Auto) (0.04-0.54) K/mm3 Baso # (Auto) (0.01-0.08) K/mm3 Manual Slide Review Sodium (136-145) mEq/L Potassium (3.5-5.1) mEq/L Chloride (98-107) mEq/L Carbon Dioxide (21-32) mEq/L Anion Gap (5-15) BUN (7-18) mg/dL Creatinine (0.7-1.3) mg/dL Est Cr Clr Drug Dosing mL/min Estimated GFR (MDRD) (>60) mL/min BUN/Creatinine Ratio (14-18) Glucose (74-106) mg/dL Calcium (8.5-10.1) mg/dL Magnesium (1.8-2.4) mg/dl Total Bilirubin (0.2-1.0) mg/dL AST (15-37) U/L ALT (16-63) U/L Alkaline Phosphatase (46-116) U/L Total Protein (6.4-8.2) g/dl Albumin (3.4-5.0) g/dl Globulin gm/dL Albumin/Globulin Ratio (1-2) SARS Virus RNA (PCR) Negative (NEGATIVE) 03/09/20 03/09/20 Range/Units 05:30 05:30 WBC 5.87 (4.23-9.07) K/mm3 RBC 4.08 L (4.63-6.08) M/mm3 Hgb 8.2 L (13.7-17.5) gm/dl Hct 28.2 L (40.1-51.0) % MCV 69.1 L (79.0-92.2) fl MCH 20.1 L (25.7-32.2) pg MCHC 29.1 L (32.2-35.5) g/dl RDW Std Deviation 52.1 H (35.1-43.9) fL Plt Count 355 H (163-337) K/mm3 MPV 9.6 (9.4-12.3) fl Neut % (Auto) 71.0 H (34.0-67.9) % Lymph % (Auto) 17.5 L (21.8-53.1) % Daniels % (Auto) 8.7 (5.3-12.2) % Eos % (Auto) 2.0 (0.8-7.0) Baso % (Auto) 0.3 (0.1-1.2) % Neut # (Auto) 4.16 (1.78-5.38) K/mm3 Lymph # (Auto) 1.03 L (1.32-3.57) K/mm3 Daniels # (Auto) 0.51 (0.30-0.82) K/mm3 Eos # (Auto) 0.12 (0.04-0.54) K/mm3 Baso # (Auto) 0.02 (0.01-0.08) K/mm3 Manual Slide Review Abnormal smear Sodium 142 (136-145) mEq/L Potassium 3.9 (3.5-5.1) mEq/L Chloride 105 (98-107) mEq/L Carbon Dioxide 26 (21-32) mEq/L Anion Gap 14.9 (5-15) BUN 8 (7-18) mg/dL Creatinine 0.9 (0.7-1.3) mg/dL Est Cr Clr Drug Dosing 112.65 mL/min Estimated GFR (MDRD) > 60 (>60) mL/min BUN/Creatinine Ratio 8.9 L (14-18) Glucose 102 (74-106) mg/dL Calcium 8.5 (8.5-10.1) mg/dL Magnesium 2.1 (1.8-2.4) mg/dl Total Bilirubin 1.6 H (0.2-1.0) mg/dL AST 20 (15-37) U/L ALT 34 (16-63) U/L Alkaline Phosphatase 56 (46-116) U/L Total Protein 6.9 (6.4-8.2) g/dl Albumin 3.6 (3.4-5.0) g/dl Globulin 3.3 gm/dL Albumin/Globulin Ratio 1.1 (1-2) SARS Virus RNA (PCR) (NEGATIVE) Med Orders - Current: Current Medications Acetaminophen (Tylenol) 650 mg PO Q4H PRN PRN Reason: Pain (Mild 1-3)/fever Miscellaneous Information (Remove Patch) 1 ea TRDERM Q24H [facility] Nicotine (Habitrol) 14 mg TRDERM DAILY [facility] Last Admin: 03/09/20 06:21 Dose: 14 mg Documented by: Ondansetron HCl (Zofran) 4 mg IV Q4H PRN PRN Reason: Nausea/Vomiting Pantoprazole Sodium (Protonix) 40 mg PO BEDTIME [facility] Last Admin: 03/08/20 20:09 Dose: 40 mg Documented by: Discontinued Medications Fentanyl (Sublimaze) Confirm Administered Dose 100 mcg .ROUTE .STK-MED ONE Stop: 03/09/20 07:36 Glycopyrrolate (Robinul) Confirm Administered Dose 0.2 mg .ROUTE .STK-MED ONE Stop: 03/09/20 08:19 Lactated Ringer's (Ringers, Lactated) Confirm Administered Dose 1,000 mls @ as directed .ROUTE .STK-MED ONE Stop: 03/09/20 07:35 Lidocaine HCl (Xylocaine-Mpf 1%) Confirm Administered Dose 4 mls @ as directed .ROUTE .STK-MED ONE Stop: 03/09/20 07:42 Ketamine HCl (Ketalar) Confirm Administered Dose 500 mg .ROUTE .STK-MED ONE Stop: 03/09/20 07:36 Lidocaine HCl (Xylocaine 2% Jelly) 10 ml MUCMEM ONETIME ONE Stop: 03/07/20 14:13 Last Admin: 03/07/20 18:09 Dose: 10 ml Documented by: Midazolam HCl (Versed 1 Mg/Ml) Confirm Administered Dose 2 mg .ROUTE .STK-MED ONE Stop: 03/09/20 07:36 Pantoprazole Sodium (Protonix) 40 mg PO ACBREAKFAST [facility] Last Admin: 03/08/20 06:19 Dose: 40 mg Documented by: Polyethylene Glycol/Electrolytes (Golytely) 4,000 ml PO ONETIME ONE Stop: 03/08/20 07:32 Last Admin: 03/08/20 14:21 Dose: Not Given Documented by: Polyethylene Glycol/Electrolytes (Golytely) 4,000 ml PO ONETIME ONE Stop: 03/08/20 16:01 Last Admin: 03/08/20 17:05 Dose: 4,000 ml Documented by: Propofol (Diprivan 20 Ml) Confirm Administered Dose 400 mg .ROUTE .STK-MED ONE Stop: 03/09/20 07:36 Propofol (Diprivan 20 Ml) Confirm Administered Dose 200 mg .ROUTE .STK-MED ONE Stop: 03/09/20 07:41 - Exam General: Alert, Oriented Neck: Supple Lungs: Normal Respiratory Effort GI/Abdominal Exam: Soft, Non-Tender, No Distention Sepsis Event Note - Evaluation Sepsis Screening Result: No Definite Risk - Focused Exam Vital Signs: Vital Signs Pulse Resp BP Pulse Ox 03/09/20 07:36 70 20 132/83 95 03/09/20 05:10 61 18 120/74 98 Date Exam was Performed: 03/09/20 Time Exam was Performed: 08:56 - Problem List & Annotations (1) Lower GI bleed SNOMED Code(s): 27871277 Code(s): K92.2 - GASTROINTESTINAL HEMORRHAGE, UNSPECIFIED Status: Acute Priority: High Current Visit: Yes (2) History of Salgado's esophagus SNOMED Code(s): 59194522492568653 Code(s): Z87.19 - PERSONAL HISTORY OF OTHER DISEASES OF THE DIGESTIVE SYSTEM Status: Chronic Priority: Medium Current Visit: No - Problem List Review Problem List Initiated/Reviewed/Updated: Yes - My Orders Last 24 Hours: Active Orders 24 hr Category Date Time Status EKG Documentation Completion [RC] URGENT Care 03/08/20 13:54 Active Consult to Administrative Staff Supervisor [CONS] Routine Cons 03/08/20 11:18 Active NPO After Midnight [Nothing per Oral After Midnight Diet 03/09/20 Breakfast Active Diet] [DIET] Nicotine [Habitrol] Med 03/08/20 09:30 Active 14 mg TRDERM DAILY Pantoprazole [ProTONIX] Med 03/08/20 21:00 Active 40 mg PO BEDTIME Remove Patch Med 03/09/20 09:00 Active 1 ea TRDERM Q24H Schedule Procedure [COMM] Routine Oth 03/08/20 09:56 Ordered Medication Orders Acetaminophen (Tylenol) 650 mg PO Q4H PRN PRN Reason: Pain (Mild 1-3)/fever Miscellaneous Information (Remove Patch) 1 ea TRDERM Q24H [facility] Nicotine (Habitrol) 14 mg TRDERM DAILY [facility] Last Admin: 03/09/20 06:21 Dose: 14 mg Documented by: Admin: 03/08/20 13:48 Dose: Not Given Documented by: ORLY Ondansetron HCl (Zofran) 4 mg IV Q4H PRN PRN Reason: Nausea/Vomiting Pantoprazole Sodium (Protonix) 40 mg PO BEDTIME [facility] Last Admin: 03/08/20 20:09 Dose: 40 mg Documented by: RANDELL - Assessment Assessment (Free Text/Narrative):: 39 y/o gentleman with rectal bleeding, history of salgado's esophagus - plan for EGD and colonoscopy today with possible hemorrhoid bands - will determine need for more treatment based on findings in the procedures - no need for further transfusion at this point Nani Womack MD General Surgery
--- NOTE | 2020-03-09 09:05 | PCM.OPNOTE ---
- General Post-Op/Procedure Note Date of Surgery/Procedure: 03/09/20 Operative Procedure(s): EGD and colonoscopy with hemorrhoid banding Findings: 1. Long segment (13cm) esophagus 2. Gastritis 3. Duodenitis 4. Antral polyps 5. Internal hemorrhoids with external component, grade 3 Pre Op Diagnosis: Rectal bleeding, history of Faulkner's esophagus Post-Op Diagnosis: Same Anesthesia Technique: MAC Primary Surgeon: Nani Womack Anesthesia Provider: Kylee Pandya Pathology: 1. Duodenal biopsy 2. Antral biopsy 3. Antral polyp biopsy 4. Faulkner's biopsy at 42cm 5. Faulkner's biopsy at 39cm 6. Faulkner's biopsy at 37cm 7. Faulkner's biopsy at 35cm 8. Faulkner's biopsy at 33cm 9. Faulkner's biopsy at 31cm 10. Faulkner's biopsy at 29cm Fluid Replacement, Intraop: 600 Output, Urine Amount: 0 EBL in mLs: 0 Complications: none apparent Condition: Good Free Text/Narrative:: Intake & Output 03/08/20 03/09/20 03/09/20 22:59 06:59 14:59 Intake Total 1989 800 Output Total 1999 Balance -10 800
--- NOTE | 2020-03-09 09:07 | PCM.PRNOTE ---
- Free Text/Narrative Note: Operative Report Date of Procedure: March 09, 2020 Pre Op Diagnosis: Rectal bleeding and history of Faulkner's esophagus Post-Op Diagnosis: Same Operative Procedures: 1. EGD with biopsy 2. Colonoscopy to the cecum with hemorrhoid banding Primary Surgeon: Nani Womack MD Anesthesia Provider: Vikas Pandya CRNA Anesthesia Technique: MAC IV Fluid Replacement, Intraop: 600cc crystalloid Output, Urine Amount: 0cc EBL in mLs: 0cc Findings: 1. Long segment (13cm) esophagus 2. Small hiatal hernia 3. Gastritis 4. Duodenitis 5. Antral polyps 6. Internal hemorrhoids with external component, grade 3 Specimens: 1. Duodenal biopsy 2. Antral biopsy 3. Antral polyp biopsy 4. Faulkner's biopsy at 42cm 5. Faulkner's biopsy at 39cm 6. Faulkner's biopsy at 37cm 7. Faulkner's biopsy at 35cm 8. Faulkner's biopsy at 33cm 9. Faulkner's biopsy at 31cm 10. Faulkner's biopsy at 29cm Drain/Tubes: None Indication: The patient is a 39-year-old gentleman who presented to the emergency department with rectal bleeding and anemia. The patient reported symptoms of active bleeding for at least 1 week. He also had a history of Faulkner's esophagus that had not been screened recently. The patient was consented for a EGD and colonoscopy. Risks of bleeding, and perforation were discussed, and the patient agreed to the risks and wished to proceed. Description of the procedure: The patient was taken back to the endoscopy suite, and placed in the left lateral decubitus position. A bite block was placed. The patient was sedated with MAC anesthesia. The Olympus video endoscope was inserted into the oropharynx and guided under direct vision into the esophagus, stomach, and duodenum. The duodenal bulb and second portion of the duodenum Specter, and the duodenal bulb had some friability and erythema. Biopsies were taken in the duodenum with a cold biopsy forceps the gastric antrum was inspected and cold biopsy forceps were used to take tissue samples for H. pylori. There was erythema in this area consistent with gastritis as well as some polypoid lesions. 2 of these polypoid lesions were biopsied using a cold biopsy forceps the scope was withdrawn to the stomach and retroflexed. There was some bilious fluid in the stomach. The patient had some coughing and retching during the procedure, so this may be physiologic. There were scattered polyps in the stomach that appeared benign. No erosions or ulcers were noted. The scope was withdrawn to the esophagus. A this point we noted a small hiatal hernia. Extensive Barretts esophagus changes were noted. Biopsies were taken at approximate 2 cm intervals through the 13 cm length of Faulkner's esophagus. At each interval, four-quadrant biopsies were sampled with a cold biopsy forceps and sent in individual jars to pathology the endoscope was then withdrawn. Next, anorectal examination was performed. Prolapsing hemorrhoids were noted externally. The scope was placed into the rectum and advanced to cecum. Upon reaching the cecum, and the patients cecum was entered. There was mild tortuosity of the colon, requiring external abdominal pressure. The ileocecal valve was well visualized and the appendiceal orifice identified. At this point, the scope was slowly withdrawn, paying attention to the mucosa. The patient had excellent bowel prep, greater than 95% of the mucosa was visible. Normal mucosa was noted. In the rectum, scope was retroflexed and some internal hemorrhoidal tissue was noted. The scope was placed back in the lumen and excess air was aspirated. The scope was removed. An anal scope was then inserted to visualize the hemorrhoid tissue. The hemorrhoidal cushions were very enlarged and friable. 4 hemorrhoid bands were placed. Some oozing was induced by the band placement. The endoscope was then removed and the colonoscope reinserted. There did not appear to be large active bleeding in the anal canal. The scope was then withdrawn. The patient tolerated the procedure very well. Complications: None apparent Condition: The patient was transported to PACU in stable condition. Nani Womack MD General Surgery
--- NOTE | 2020-03-09 09:09 | PCM48HPAN ---
Post Anesthesia Note - EVALUATION WITHIN 48HRS OF ANESTHETIC Vital Signs in Normal Range: Yes Patient Participated in Evaluation: Yes Respiratory Function Stable: Yes Airway Patent: Yes Cardiovascular Function Stable: Yes Hydration Status Stable: Yes Pain Control Satisfactory: Yes Nausea and Vomiting Control Satisfactory: Yes Mental Status Recovered: Yes Vital Signs: Last Vital Signs Temp 36.6 C 03/08/20 19:58 Pulse 70 03/09/20 07:36 Resp 20 03/09/20 07:36 BP 132/83 03/09/20 07:36 Pulse Ox 95 03/09/20 07:36
[2020-03-09] MEDS ORDERED: Simethicone 80 MG Tab.Chew PO PRN (11:04)
[2020-03-09] MEDS ORDERED: Simethicone 80 MG Tab.Chew PO ONE (11:07)
[2020-03-09] MEDS ORDERED: Hydrocortisone Acetate 25 MG Supp RECTAL ONE (11:08)
[2020-03-09] MEDS ORDERED: Polyethylene Glycol 3350 Powder 17 GM Packet PO PRN ×2 (12:01→12:02)
--- NOTE | 2020-03-09 15:19 | PCM.DCSUM1 ---
Discharge Summary - Hospital Course HPI Initial Comments: 39-year-old male with a 1 to 2-week history of bright red blood per rectum. He states he has had bright red blood per rectum for the last 20 years off-and-on, but over the last week or so he has had some stomach discomfort, worsening sleep, increasing fatigue, and dyspnea on exertion. He states when he goes upstairs he can tell his heart is pounding and is short of breath. He states that there is been a lot of blood in the toilet. He states that generally only occurs with defecation. He denies any rectal pain. Patient has no recent weight loss, fever, chills, diaphoresis, or night sweats. Denies any lightheadedness or dizziness. No family history of colon cancer, but his dad had bladder cancer. That was a smoker. He is a non-smoker and nondrinker. He is on omeprazole 20 mg for reflux. In the emergency department patient was found to have a hemoglobin of 6.9. Vitals were stable with a blood pressure of 135/61 and heart rate of 87. Dr. Armendariz in surgery was consulted and she recommended transfusion and either inpatient or outpatient prep for colonoscopy. Dr. Greer did a sigmoidoscope up to 16 cm and there was blood coating the lining of the colon at 16 cm. There was a large hemorrhoid internally at both 3:00 and 7:00 positions. The 3:00 hemorrhoid was actively oozing some blood. Unfortunately, at 16 cm and the scope light burned out. It was felt that he would be at risk because of the active bleeding if he went home tonight. Plan will be to prep tomorrow and have colonoscopy done on Saturday morning. Diagnosis: Stroke: No - Discharge Data Discharge Date: 03/09/20 (Admit date: 03/07/20) Discharge Disposition: Home, Self-Care 01 Condition: Good - Referral to Home Health Primary Care Physician: Ashley Mcdonald NP - Discharge Diagnosis/Problem(s) (1) Anemia SNOMED Code(s): 202050522 ICD Code: D64.9 - ANEMIA, UNSPECIFIED Status: Acute Priority: High Current Visit: Yes Qualifiers: Anemia type: iron deficiency Iron deficiency anemia type: chronic blood loss Qualified Code(s): D50.0 - Iron deficiency anemia secondary to blood loss (chronic) (2) Internal bleeding hemorrhoids SNOMED Code(s): 33006729 ICD Code: K64.8 - OTHER HEMORRHOIDS Status: Acute Priority: High Current Visit: Yes (3) Lower GI bleed SNOMED Code(s): 18217196 ICD Code: K92.2 - GASTROINTESTINAL HEMORRHAGE, UNSPECIFIED Status: Acute Priority: High Current Visit: Yes (4) History of Flores's esophagus SNOMED Code(s): 48217872197207475 ICD Code: Z87.19 - PERSONAL HISTORY OF OTHER DISEASES OF THE DIGESTIVE SYSTEM Status: Chronic Priority: High Current Visit: Yes (5) Chewing tobacco use SNOMED Code(s): 37554961 ICD Code: Z72.0 - TOBACCO USE Status: Chronic Priority: Medium Current Visit: Yes (6) Hypocalcemia SNOMED Code(s): 5376989 ICD Code: E83.51 - HYPOCALCEMIA Status: Resolved Priority: High Current Visit: Yes (7) Obesity SNOMED Code(s): 267878479, 349988859 ICD Code: E66.9 - OBESITY, UNSPECIFIED Status: Chronic Priority: Medium Current Visit: Yes Qualifiers: Obesity type: unspecified obesity type Obesity classification: adult class 3 (BMI >= 40) Serious obesity comorbidity presence: unspecified whether serious comorbidity present Body mass index: BMI 40.0-44.9 Qualified Code(s): E66.01 - Morbid (severe) obesity due to excess calories; Z68.41 - Body mass index (BMI) 40.0-44.9, adult (8) S/P colonoscopy SNOMED Code(s): 038810828346, 506042349, 385874451544 ICD Code: Z98.890 - OTHER SPECIFIED POSTPROCEDURAL STATES Status: Acute Priority: High Current Visit: Yes (9) Abnormal findings on esophagogastroduodenoscopy (EGD) SNOMED Code(s): 618749188, 860573961 ICD Code: R19.8 - OTH SYMPTOMS AND SIGNS INVOLVING THE DGSTV SYS AND ABDOMEN Status: Acute Priority: High Current Visit: Yes (10) Abnormal colonoscopy SNOMED Code(s): 111137822 ICD Code: R93.3 - ABNORMAL FINDINGS ON DX IMAGING OF PRT DIGESTIVE TRACT Status: Acute Priority: High Current Visit: Yes (11) Hiatal hernia SNOMED Code(s): 98098361 ICD Code: K44.9 - DIAPHRAGMATIC HERNIA WITHOUT OBSTRUCTION OR GANGRENE Status: Chronic Priority: Medium Current Visit: Yes (12) Duodenitis SNOMED Code(s): 95516523 ICD Code: K29.80 - DUODENITIS WITHOUT BLEEDING Status: Acute Priority: High Current Visit: Yes (13) Antral (maxillary) polyp SNOMED Code(s): 67690116 ICD Code: J33.8 - OTHER POLYP OF SINUS Status: Acute Priority: High Cur rent Visit: Yes (14) Gastritis SNOMED Code(s): 2392812 ICD Code: K29.70 - GASTRITIS, UNSPECIFIED, WITHOUT BLEEDING Status: Acute Priority: High Current Visit: Yes (15) Long-segment Flores's esophagus SNOMED Code(s): 526230157 ICD Code: K22.70 - FLORES'S ESOPHAGUS WITHOUT DYSPLASIA Status: Acute Priority: High Current Visit: Yes - Patient Summary/Data Operative Procedure(s) Performed: EGD and colonoscopy with hemorrhoid banding Consults: Consultations 03/07/20 21:26 Consult to Physician [CONS] Routine 03/08/20 11:18 Consult to Charge Nurse [CONS] Routine Labs Pending at D/C: Multiple EGD biopsy specimens pending Recommended Follow-up Testing/Procedures: Follow-up with PCP within 5-7 days of discharge -Recommend repeat H/H at that time Follow-up with Dr. Armendariz within 2 weeks Hospital Course: Diony was admitted to the hospital floor due to anemia and a rectal bleed which has been ongoing for some time. Hemoglobin in the ED was 6.9 and he was given 3 units which brought his hemoglobin up into the mid to upper eights. He does report a history of Flores's esophagitis and did undergo an EGD with Dr. Roque in 04/2018. During that time in reviewing notes multiple biopsies were taken with no dysplasia noted. Segment of Flores's esophagus appeared to be approximately 4 cm in length. Patient reports that he was supposed to follow-up yearly for continued EGDs, however he has not followed up since that time. Dr. Armendariz, general surgeon, was consulted to perform colonoscopy due to rectal bleed. Decision was made to also do EGD to reevaluate this area. Prior to procedure hemoglobin did stabilize and patient noted no new significant rectal bleeding. Colonoscopy prep was performed and patient was taken back to GI suite. Surgical note showed a significant increase in Flores's esophagus, up to 13 cm now. There is also a small hiatal hernia, gastritis, duodenitis, and antral polyps noted. Internal hemorrhoids with external component grade 3 were noted and 4 hemorrhoid bands were placed. Multiple biopsies were taken and were pending. Bowel prep was noted to be very good. Discussed results with Dr. Armendariz and she recommends patient continue his home omeprazole. He should try to keep his stools somewhat soft utilizing twice daily as needed MiraLAX and fiber pills as needed. She would like to follow-up with him in 2 weeks. We discussed the importance of stopping chewing tobacco, as the patient reports he utilizes about a tin a day. Also reports occasional cigarette use, but infrequently. Patient was offered nicotine patches prior to discharge and did refuse. He was given practical resources such as [place] tobacco quit program and [facility] tobacco cessation program contact information. He was offered to schedule appointment with our clinic cessation program. He refused this. He was also advised that he can follow-up with his primary care provider should he change his mind. Iron panel was obtained and was low with iron at 25, TIBC at 394, percent saturation at 6, transferrin at 315, and ferritin at 4. He was prescribed daily iron supplementation and was advised that this may increase constipation so he should watch for this. He was advised that he may note mild bleeding from his rectum for several days along with a feeling of needing to have a bowel movement due to the hemorrhoidal bands. This should resolve after several days. He was advised to immediately report to the emergency room should he notice any significant bleeding from his rectum. Olga garvin reports he would like to go home as he feels better and is quite tired. This is certainly reasonable. He will be discharged today. Home medications were continued. He was sent prescriptions for as needed BID MiraLAX, PRN simethicone for gas, PRN hydrocortisone rectal suppositories for rectal pain, and daily iron supplementation. He was advised to continue sitz baths PRN for rectal pain. His was present throughout his stay and updated on plan with him. He was advised to follow-up with his primary care provider within 5 to 7 days of discharge and Dr[address] Armendariz, general surgeon within 14 days of discharge. Recommend re-check Hgb at his follow-up appointment with his PCP. - Patient Instructions Diet: Usual Diet as Tolerated Activity: As Tolerated Driving: Do Not Drive (today) Showering/Bathing: May Shower Notify Provider of: Fever, Increased Pain, Nausea and/or Vomiting Other/Special Instructions: Follow-up with primary care provider within 5-7 days of discharge. Recommend re-check hemoglobin at that time. Take all new medications as prescribed. Resume home medications as directed. Follow-up with Dr. Armendariz within 2 weeks. Try to keep your stools softer. You may utilize miralax twice a day and fiber supplements to achive this as needed. Strongly recommend you stop chewing tobacco and smoking. We offered you nicotine patches but you refused. Should you change your mind you may talk with your primary care provider or utilize the resources provided, such as [place] quits or the [facility] tobacco cessation program. You will likely notice a feeling of needing to have a bowel movement for the next few days until the rectal bands fall off. You may also notice some minor bleeding. If the bleeding becomes severe return to the Emergency Department. Should symptoms return or worsen, contact your primary care provider or return to the Emergency Department. - Discharge Plan *PRESCRIPTION DRUG MONITORING PROGRAM REVIEWED*: Not Applicable *COPY OF PRESCRIPTION DRUG MONITORING REPORT IN PATIENT KIT: Not Applicable Prescriptions/Med Rec: Hydrocortisone Acetate [Anucort-HC] 25 mg RECTAL BID PRN #4 supp PRN Reason: rectal pain Iron Polysaccharides Complex [Ferrex 150] 150 mg PO DAILY #20 cap polyethylene glycoL 3350 [MiraLAX] 17 gm PO BID PRN #20 packet PRN Reason: Constipation Simethicone 80 mg PO Q4H PRN #10 tab.chew PRN Reason: Gas Home Medications: Home Meds Omeprazole 20 mg PO DAILY 05/12/18 [History] Hydrocortisone Acetate [Anucort-HC] 25 mg RECTAL BID PRN #4 supp 03/09/20 [Rx] Iron Polysaccharides Complex [Ferrex 150] 150 mg PO DAILY #20 cap 03/09/20 [Rx] Simethicone 80 mg PO Q4H PRN #10 tab.chew 03/09/20 [Rx] polyethylene glycoL 3350 [MiraLAX] 17 gm PO BID PRN #20 packet 03/09/20 [Rx] Oxygen Therapy Mode: Room Air Patient Handouts: Gastritis, Adult, [id number], Preventing Iron Deficiency Anemia, Adult, Colonoscopy, Adult, Care After, [id number], Upper Endoscopy, Adult, Care After, Gastrointestinal Bleeding, [id number], Smokeless Tobacco Information, Adult, Flores's Esophagus, Steps to Quit Smoking, How to Take a Sitz Bath Forms: ED Department Discharge Referrals: Nani Womack MD [Physician] - (please schedule a follow up appointment with Dr. Armendariz within 2 weeks.) Ashley Mcdonald NP [Primary Care Provider] - (please schedule a follow up appointment with Ashley Alvarez within 7 days.) - Discharge Summary/Plan Comment DC Time >30 min.: Yes (45 mins ) - General Info Date of Service: 03/09/20 Functional Status: Reports: Pain Controlled, Tolerating Diet, Ambulating, Urinating. Denies: New Symptoms - Review of Systems General: Reports: Weakness, Fatigue. Denies: Fever, Malaise, Chills HEENT: Reports: Sore Throat (mild). Denies: Headaches Pulmonary: Reports: No Symptoms. Denies: Shortness of Breath, Pleuritic Chest Pain, Cough, Sputum, Hemoptysis, Wheezing Cardiovascular: Reports: No Symptoms. Denies: Chest Pain, Palpitations, Edema Gastrointestinal: Reports: Flatus, Other (Rectal pain 2/2 hemorrhoidal banding ). Denies: Abdominal Pain, Constipation, Diarrhea, Difficulty Swallowing, Hematochezia, Melena, Nausea, Vomiting Genitourinary: Reports: No Symptoms. Denies: Pain Musculoskeletal: Reports: No Symptoms Skin: Reports: No Symptoms. Denies: Cyanosis Neurological: Reports: No Symptoms. Denies: Confusion, Difficulty Walking, Gait Disturbance Psychiatric: Reports: No Symptoms - Patient Data Vitals - Most Recent: Last Vital Signs Temp 97.5 F 03/09/20 12: Pulse 65 03/09/20 12:26 Resp 20 03/09/20 12:26 BP 107/61 03/09/20 12:26 Pulse Ox 100 03/09/20 12:26 Weight - Most Recent: 299 lb 8 oz I&O - Last 24 hours: Intake & Output 03/09/20 03/09/20 03/09/20 06:59 14:59 22:59 Intake Total 800 600 Output Total 0 Balance 800 600 Lab Results - Last 24 hrs: Laboratory Results - last 24 hr 03/08/20 03/08/20 03/08/20 Range/Units 18:09 22:18 22:20 WBC (4.23-9.07) K/mm3 RBC (4.63-6.08) M/mm3 Hgb 8.7 L 8.9 L (13.7-17.5) gm/dl Hct 29.8 L 30.6 L (40.1-51.0) % MCV (79.0-92.2) fl MCH (25.7-32.2) pg MCHC (32.2-35.5) g/dl RDW Std Deviation (35.1-43.9) fL Plt Count (163-337) K/mm3 MPV (9.4-12.3) fl Neut % (Auto) (34.0-67.9) % Lymph % (Auto) (21.8-53.1) % [place] % (Auto) (5.3-12.2) % Eos % (Auto) (0.8-7.0) Baso % (Auto) (0.1-1.2) % Neut # (Auto) (1.78-5.38) K/mm3 Lymph # (Auto) (1.32-3.57) K/mm3 [place] # (Auto) (0.30-0.82) K/mm3 Eos # (Auto) (0.04-0.54) K/mm3 Baso # (Auto) (0.01-0.08) K/mm3 Manual Slide Review Sodium (136-145) mEq/L Potassium (3.5-5.1) mEq/L Chloride (98-107) mEq/L Carbon Dioxide (21-32) mEq/L Anion Gap (5-15) BUN (7-18) mg/dL Creatinine (0.7-1.3) mg/dL Est Cr Clr Drug Dosing mL/min Estimated GFR (MDRD) (>60) mL/min BUN/Creatinine Ratio (14-18) Glucose (74-106) mg/dL Calcium (8.5-10.1) mg/dL Magnesium (1.8-2.4) mg/dl Total Bilirubin (0.2-1.0) mg/dL AST (15-37) U/L ALT (16-63) U/L Alkaline Phosphatase (46-116) U/L Total Protein (6.4-8.2) g/dl Albumin (3.4-5.0) g/dl Globulin gm/dL Albumin/Globulin Ratio (1-2) SARS Virus RNA (PCR) Negative (NEGATIVE) 03/09/20 03/09/20 Range/Units 05:30 05:30 WBC 5.87 (4.23-9.07) K/mm3 RBC 4.08 L (4.63-6.08) M/mm3 Hgb 8.2 L (13.7-17.5) gm/dl Hct 28.2 L (40.1-51.0) % MCV 69.1 L (79.0-92.2) fl MCH 20.1 L (25.7-32.2) pg MCHC 29.1 L (32.2-35.5) g/dl RDW Std Deviation 52.1 H (35.1-43.9) fL Plt Count 355 H (163-337) K/mm3 MPV 9.6 (9.4-12.3) fl Neut % (Auto) 71.0 H (34.0-67.9) % Lymph % (Auto) 17.5 L (21.8-53.1) % [place] % (Auto) 8.7 (5.3-12.2) % Eos % (Auto) 2.0 (0.8-7.0) Baso % (Auto) 0.3 (0.1-1.2) % Neut # (Auto) 4.16 (1.78-5.38) K/mm3 Lymph # (Auto) 1.03 L (1.32-3.57) K/mm3 [place] # (Auto) 0.51 (0.30-0.82) K/mm3 Eos # (Auto) 0.12 (0.04-0.54) K/mm3 Baso # (Auto) 0.02 (0.01-0.08) K/mm3 Manual Slide Review Abnormal smear Sodium 142 (136-145) mEq/L Potassium 3.9 (3.5-5.1) mEq/L Chloride 105 (98-107) mEq/L Carbon Dioxide 26 (21-32) mEq/L Anion Gap 14.9 (5-15) BUN 8 (7-18) mg/dL Creatinine 0.9 (0.7-1.3) mg/dL Est Cr Clr Drug Dosing 112.65 mL/min Estimated GFR (MDRD) > 60 (>60) mL/min BUN/Creatinine Ratio 8.9 L (14-18) Glucose 102 (74-106) mg/dL Calcium 8.5 (8.5-10.1) mg/dL Magnesium 2.1 (1.8-2.4) mg/dl Total Bilirubin 1.6 H (0.2-1.0) mg/dL AST 20 (15-37) U/L ALT 34 (16-63) U/L Alkaline Phosphatase 56 (46-116) U/L Total Protein 6.9 (6.4-8.2) g/dl Albumin 3.6 (3.4-5.0) g/dl Globulin 3.3 gm/dL Albumin/Globulin Ratio 1.1 (1-2) SARS Virus RNA (PCR) (NEGATIVE) Med Orders - Current: Current Medications Acetaminophen (Tylenol) 650 mg PO Q4H PRN PRN Reason: Pain (Mild 1-3)/fever Hydrocortisone Acetate (Anucort-Hc) 25 mg RECTAL BID PRN PRN Reason: rectal pain Miscellaneous Information (Remove Patch) 1 ea TRDERM Q24H [facility] Nicotine (Habitrol) 14 mg TRDERM DAILY [facility] Last Admin: 03/09/20 06:21 Dose: 14 mg Documented by: Ondansetron HCl (Zofran) 4 mg IV Q4H PRN PRN Reason: Nausea/Vomiting Pantoprazole Sodium (Protonix) 40 mg PO BEDTIME [facility] Last Admin: 03/08/20 20:09 Dose: 40 mg Documented by: Polyethylene Glycol (Miralax) 17 gm PO BID PRN PRN Reason: Constipation Last Admin: 03/09/20 12:17 Dose: 17 gm Documented by: Polysaccharide Iron Complex (Ferrex 150) 150 mg PO DAILY [facility] Simethicone (Simethicone) 80 mg PO Q4H PRN PRN Reason: Gas Last Admin: 03/09/20 11:30 Dose: 80 mg Documented by: Discontinued Medications Fentanyl (Sublimaze) Confirm Administered Dose 100 mcg .ROUTE .STK-MED ONE Stop: 03/09/20 07:36 Glycopyrrolate (Robinul) Confirm Administered Dose 0.2 mg .ROUTE .STK-MED ONE Stop: 03/09/20 08:19 Hydrocortisone Acetate (Anucort-Hc) 25 mg RECTAL ONETIME ONE Stop: 03/09/20 11:09 Last Admin: 03/09/20 11:30 Dose: 25 mg Documented by: Lactated Ringer's (Ringers, Lactated) Confirm Administered Dose 1,000 mls @ as directed .ROUTE .STK-MED ONE Stop: 03/09/20 07:35 Lidocaine HCl (Xylocaine-Mpf 1%) Confirm Administered Dose 4 mls @ as directed .ROUTE .STK-MED ONE Stop: 03/09/20 07:42 Ketamine HCl (Ketalar) Confirm Administered Dose 500 mg .ROUTE .STK-MED ONE Stop: 03/09/20 07:36 Lidocaine HCl (Xylocaine 2% Jelly) 10 ml MUCMEM ONETIME ONE Stop: 03/07/20 14:13 Last Admin: 03/07/20 18:09 Dose: 10 ml Documented by: Midazolam HCl (Versed 1 Mg/Ml) Confirm Administered Dose 2 mg .ROUTE .STK-MED ONE Stop: 03/09/20 07:36 Pantoprazole Sodium (Protonix) 40 mg PO ACBREAKFAST KAYLA Last Admin: 03/08/20 06:19 Dose: 40 mg Documented by: Polyethylene Glycol (Miralax) 17 gm PO BEDTIME PRN PRN Reason: Constipation Polyethylene Glycol/Electrolytes (Golytely) 4,000 ml PO ONETIME ONE Stop: 03/08/20 07:32 Last Admin: 03/08/20 14:21 Dose: Not Given Documented by: Polyethylene Glycol/Electrolytes (Golytely) 4,000 ml PO ONETIME ONE Stop: 03/08/20 16:01 Last Admin: 03/08/20 17:05 Dose: 4,000 ml Documented by: Propofol (Diprivan 20 Ml) Confirm Administered Dose 400 mg .ROUTE .STK-MED ONE Stop: 03/09/20 07:36 Propofol (Diprivan 20 Ml) Confirm Administered Dose 200 mg .ROUTE .STK-MED ONE Stop: 03/09/20 07:41 Simethicone (Simethicone) 80 mg PO ONETIME ONE Stop: 03/09/20 11:08 Last Admin: 03/09/20 14:50 Dose: Not Given Documented by: - Exam Quality Assessment: Reports: DVT Prophylaxis General: Reports: Alert, Oriented, Cooperative, No Acute Distress HEENT: Reports: Pupils Equal, Pupils Reactive, Mucous Membr. Moist/[place] Neck: Reports: Supple, Trachea Midline Lungs: Reports: Clear to Auscultation, Normal Respiratory Effort Cardiovascular: Reports: Regular Rate, Regular Rhythm GI/Abdominal Exam: Normal Bowel Sounds, Soft, Non-Tender, No Distention (Male) Exam: Deferred Rectal (Males) Exam: Deferred Back Exam: Reports: Normal Inspection, Full Range of Motion Extremities: Normal Inspection, Normal Range of Motion, Non-Tender, No Pedal Edema, Normal Capillary Refill Skin: Reports: Warm, Dry, Intact Neurological: Reports: No New Focal Deficit Psy/Mental Status: Reports: Alert, Normal Affect, Normal Mood
[2020-03-09] MEDS ORDERED: Hydrocortisone Acetate 25 MG Supp RECTAL PRN (21:00)
[2020-03-10] MEDS ORDERED: Iron Polysaccharides Complex 150 MG Cap PO SCH (09:00)
== END 2020-03-09 16:00 | disposition home or self-care (01) | DRG 348 ==
LOC: JD.ED 13:39 → JD.MS 18:53
PROVIDERS: ADMIT Family Medicine; ATTEND Family Medicine
PROC: 0DB98ZX Excision of Duodenum, Via Natural or Artificial Opening Endoscopic, Diagnostic (ICD-10-PCS; principal; 2020-03-09)
PROC: 06LY4CC Occlusion of Hemorrhoidal Plexus with Extraluminal Device, Percutaneous Endoscopic Approach (ICD-10-PCS; 2020-03-09)
PROC: 0DB68ZX Excision of Stomach, Via Natural or Artificial Opening Endoscopic, Diagnostic (ICD-10-PCS; 2020-03-09)
PROC: 0DB58ZX Excision of Esophagus, Via Natural or Artificial Opening Endoscopic, Diagnostic (ICD-10-PCS; 2020-03-09)
PROC: 30233N1 Transfusion of Nonautologous Red Blood Cells into Peripheral Vein, Percutaneous Approach (ICD-10-PCS; 2020-03-09)
DX: K64.8 Other hemorrhoids (principal); Z68.41 Body mass index [BMI] 40.0-44.9, adult; D50.0 Iron deficiency anemia secondary to blood loss (chronic); K29.80 Duodenitis without bleeding; J33.8 Other polyp of sinus; K29.70 Gastritis, unspecified, without bleeding; F17.220 Nicotine dependence, chewing tobacco, uncomplicated; E83.51 Hypocalcemia; K31.7 Polyp of stomach and duodenum; K22.70 Barrett's esophagus without dysplasia; E66.01 Morbid (severe) obesity due to excess calories; K44.9 Diaphragmatic hernia without obstruction or gangrene; Z91.018 Allergy to other foods; Z98.890 Other specified postprocedural states; Z87.19 Personal history of other diseases of the digestive system; Z79.899 Other long term (current) drug therapy
CPT/HCPCS: 00813; 36415; 36430; 80053; 82728; 83540; 83735; 84100; 84466; 85014; 85018; 85025; 85610; 85730; 86850; 86900; 86901; 86922; 93005; 99222; 99232; 99239; 99285-25; A9270-GY; J2001; J2250; J2704; J3010; J3490; J7120; P9016; U0002

== ENCOUNTER 2021-02-15 12:08 | Inpatient (IN) | payer BC ==
[2021-02-15] MEDS ORDERED: oxyCODONE 5 MG Tab PO PRN (13:00)
[2021-02-15] MEDS ORDERED: Ondansetron 4 MG/2 ML SDV IV PRN (13:00)
[2021-02-15] MEDS ORDERED: Acetaminophen 325 MG Tab PO PRN (13:00)
[2021-02-15] MEDS ORDERED: Sodium Chloride 0.9% 10 ML Syringe FLUSH PRN (13:00)
[2021-02-15] MEDS ORDERED: Ondansetron 4 MG Tab.DIS PO PRN (13:00)
[2021-02-15] MEDS: Lactated Ringers 1,000 ML IV SCH (13:39)
--- NOTE | 2021-02-15 14:21 | PCM.HP.2 ---
H&P History of Present Illness - General Date of Service: 02/15/21 Admit Problem/Dx: Admission Diagnosis/Problem Admission Diagnosis/Problem GI bleed not requiring more than 4 units of blood in 24 hours, ICU, or surgery CC: Dizziness Source of Information: Patient History Limitations: Reports: No Limitations - History of Present Illness Initial Comments - Free Text/Narative: This is a 40M with PMhx of Faulkner's Esophagus and internal hemorrhoids presenting as a direct admission from clinic for orthostatic hypotension and symptomatic anemia. The patient endorses fatigue that has been progressing over the last few weeks. He endorses intermittent bright red blood stools. He denies chest pain, sob, nausea, vomiting, hematemesis. He denies fever. Endorses dizziness and intermittent headache. His hemoglobin in clinic was noted to be 7.8. His last EGD/colonoscopy was about 1 year ago. He is not on anticoagulation. 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 GI bleed r/t hemorrhoids. banded hemorrhoids Endocrine/Metabolic History: Reports: Obesity/BMI 30+ - Infectious Disease History Infectious Disease History: Reports: Chicken Pox - Past Surgical History GI Surgical History: Reports: Colonoscopy, EGD, Hernia, Inguinal Social & Family History - Family History Family Medical History: No Pertinent Family History - Tobacco Use Tobacco Use Status *Q: Current Every Day Tobacco User Years of Tobacco use: 26 Packs/Tins Daily: 0.7 Used Tobacco, but Quit: No - Caffeine Use Caffeine Use: Reports: Coffee, Soda - Recreational Drug Use Recreational Drug Use: No - Living Situation & Occupation Living situation: Reports: Occupation: Unemployed H&P Review of Systems - Review of Systems: Review Of Systems: See Below (negative except as noted in hpi) Exam - Exam Exam: See Below - Vital Signs Vital Signs: Last Vital Signs Temp 97.9 F 02/15/21 12:17 Pulse 86 02/15/21 12:17 Resp 18 02/15/21 12:17 BP 109/53 L 02/15/21 12:17 Pulse Ox 100 02/15/21 12:17 Weight: 309 lb 8 oz - Exam Physical Exam Comments:: Gen: no acute distress HEENT: NCAT EOMI MMM neck: supple CV: RRR normal s1 s2 Lungs: CTAB Abd: Soft, nt, nd Neuro: AOX3, moves extremities; nonfocal screening exam MSK: age appropriate muscle mass Psych: appropriate affect Skin: pale complexion - Patient Data Lab Results Last 24 hrs: Laboratory Results - last 24 hr 02/15/21 02/15/21 02/15/21 Range/Units 13:20 13:20 13:20 WBC 6.46 (4.23-9.07) K/mm3 RBC 4.30 L (4.63-6.08) M/mm3 Hgb 7.6 L (13.7-17.5) gm/dl Hct 27.0 L (40.1-51.0) % MCV 62.8 L (79.0-92.2) fl MCH 17.7 L (25.7-32.2) pg MCHC 28.1 L (32.2-35.5) g/dl RDW Std Deviation 41.5 (35.1-43.9) fL Plt Count 390 H (163-337) K/mm3 MPV 9.1 L (9.4-12.3) fl Neut % (Auto) 71.9 H (34.0-67.9) % Lymph % (Auto) 19.0 L (21.8-53.1) % Dickson % (Auto) 7.6 (5.3-12.2) % Eos % (Auto) 1.1 (0.8-7.0) Baso % (Auto) 0.2 (0.1-1.2) % Neut # (Auto) 4.65 (1.78-5.38) K/mm3 Lymph # (Auto) 1.23 L (1.32-3.57) K/mm3 Dickson # (Auto) 0.49 (0.30-0.82) K/mm3 Eos # (Auto) 0.07 (0.04-0.54) K/mm3 Baso # (Auto) 0.01 (0.01-0.08) K/mm3 PT 10.9 (9.7-12.0) SECONDS INR 1.02 Sodium 138 (136-145) mEq/L Potassium 4.1 (3.5-5.1) mEq/L Chloride 103 (98-107) mEq/L Carbon Dioxide 25 (21-32) mEq/L Anion Gap 14.1 (5-15) BUN 13 (7-18) mg/dL Creatinine 0.9 (0.7-1.3) mg/dL Est Cr Clr Drug Dosing 111.53 mL/min Estimated GFR (MDRD) > 60 (>60) mL/min BUN/Creatinine Ratio 14.4 (14-18) Glucose 98 (70-99) mg/dL Lactic Acid (0.4-2.0) mmol/L Calcium 8.5 (8.5-10.1) mg/dL Total Bilirubin 0.7 (0.2-1.0) mg/dL AST 18 (15-37) U/L ALT 36 (16-63) U/L Alkaline Phosphatase 61 (46-116) U/L Total Protein 7.2 (6.4-8.2) g/dl Albumin 3.8 (3.4-5.0) g/dl Globulin 3.4 gm/dL Albumin/Globulin Ratio 1.1 (1-2) 02/15/21 Range/Units 13:20 WBC (4.23-9.07) K/mm3 RBC (4.63-6.08) M/mm3 Hgb (13.7-17.5) gm/dl Hct (40.1-51.0) % MCV (79.0-92.2) fl MCH (25.7-32.2) pg MCHC (32.2-35.5) g/dl RDW Std Deviation (35.1-43.9) fL Plt Count (163-337) K/mm3 MPV (9.4-12.3) fl Neut % (Auto) (34.0-67.9) % Lymph % (Auto) (21.8-53.1) % Dickson % (Auto) (5.3-12.2) % Eos % (Auto) (0.8-7.0) Baso % (Auto) (0.1-1.2) % Neut # (Auto) (1.78-5.38) K/mm3 Lymph # (Auto) (1.32-3.57) K/mm3 Dickson # (Auto) (0.30-0.82) K/mm3 Eos # (Auto) (0.04-0.54) K/mm3 Baso # (Auto) (0.01-0.08) K/mm3 PT (9.7-12.0) SECONDS INR Sodium (136-145) mEq/L Potassium (3.5-5.1) mEq/L Chloride (98-107) mEq/L Carbon Dioxide (21-32) mEq/L Anion Gap (5-15) BUN (7-18) mg/dL Creatinine (0.7-1.3) mg/dL Est Cr Clr Drug Dosing mL/min Estimated GFR (MDRD) (>60) mL/min BUN/Creatinine Ratio (14-18) Glucose (70-99) mg/dL Lactic Acid 1.6 (0.4-2.0) mmol/L Calcium (8.5-10.1) mg/dL Total Bilirubin (0.2-1.0) mg/dL AST (15-37) U/L ALT (16-63) U/L Alkaline Phosphatase (46-116) U/L Total Protein (6.4-8.2) g/dl Albumin (3.4-5.0) g/dl Globulin gm/dL Albumin/Globulin Ratio (1-2) Result Diagrams: 02/15/21 13:20 02/15/21 13:20 Sepsis Event Note - Focused Exam Vital Signs: Vital Signs Temp Pulse Resp BP Pulse Ox 02/15/21 12:17 97.9 F 86 18 109/53 L 100 *Q Meaningful Use (ADM) - VTE *Q VTE Pharmacological Contraindications *Q: Active Hemorrhage - VTE Risk Assess *Q Each Risk Factor Represents 1 Point: Age 41 - 59 years, Obesity ( BMI > 25 kg/m2) Total Score 1 Point Risk Factors: 2 Problem List Initiated/Reviewed/Updated: Yes Orders Last 24hrs: Active Orders 24 hr Category Date Time Status Patient Status [ADT] Routine ADT 02/15/21 12:57 Active Antiembolic Devices [RC] PER UNIT ROUTINE Care 02/15/21 13:01 Active Height and Weight [RC] 06 Care 02/15/21 12:58 Active Intake and Output [RC] 04,16 Care 02/15/21 12:59 Active Notify Provider Consults [RC] ASDIRECTED Care 02/15/21 13:01 Active Oxygen Therapy [RC] PRN Care 02/15/21 12:57 Active Peripheral IV Care [RC] . DIRECTED Care 02/15/21 13:01 Active Up to Chair [RC] ASDIRECTED Care 02/15/21 12:58 Active VTE/DVT Education [RC] PER UNIT ROUTINE Care 02/15/21 12:57 Active Verify Patient Consent Obtain [RC] ASDIRECTED Care 02/15/21 14:12 Ordered Vital Signs [RC] Q4HR Care 02/15/21 12:58 Active Consult to Physician [CONS] Routine Cons 02/15/21 13:00 Active Clear Liquid Diet [DIET] Diet 02/15/21 Lunch Active CBC WITH AUTO DIFF [HEME] Routine Lab 02/15/21 13:20 Results CORONAVIRUS COVID-19 CARLOS [MOLEC] Routine Lab 02/15/21 13:40 Received TYPE AND SCREEN [BBK] Routine Lab 02/15/21 13:20 Received Acetaminophen [TylenoL] Med 02/15/21 13:00 Active 650 mg PO Q4H PRN Lactated Ringers [Ringers, Lactated] 1,000 ml Med 02/15/21 13:00 Active IV ASDIRECTED Ondansetron [Zofran ODT] Med 02/15/21 13:00 Active 4 mg PO Q4H PRN Ondansetron [Zofran] Med 02/15/21 13:00 Active 4 mg IV Q6H PRN Pantoprazole [ProTONIX IV] Med 02/15/21 21:00 Active 40 mg IV Q12HR Sodium Chloride 0.9% [Saline Flush] Med 02/15/21 13:00 Active 10 ml FLUSH ASDIRECTED PRN oxyCODONE Med 02/15/21 13:00 Active 5 mg PO Q4H PRN Blood Transfusion Reflex Orders [OM.PC] Routine Oth 02/15/21 14:11 Ordered Peripheral IV Insertion Adult [OM.PC] Routine Oth 02/15/21 12:58 Ordered Sequential Compression Device [OM.PC] Per Unit Routine Oth 02/15/21 12:59 Ordered Transfuse Red Blood Cells [COMM] Routine Oth 02/15/21 14:11 Ordered Resuscitation Status Routine Resus Stat 02/15/21 12:43 Ordered Medication Orders Acetaminophen (Acetaminophen 325 Mg Tab) 650 mg PO Q4H PRN PRN Reason: Pain (Mild 1-3)/fever Lactated Ringer's (Ringers, Lactated) 1,000 mls @ 100 mls/hr IV ASDIRECTED KAYLA Last Admin: 02/15/21 13:39 Dose: 100 mls/hr Documented by: PERICO Ondansetron HCl (Ondansetron 4 Mg Tab.Dis) 4 mg PO Q4H PRN PRN Reason: nausea, able to take PO Ondansetron HCl (Ondansetron 4 Mg/2 Ml Sdv) 4 mg IV Q6H PRN PRN Reason: Nausea/Vomiting Oxycodone HCl (Oxycodone 5 Mg Tab) 5 mg PO Q4H PRN PRN Reason: Pain (moderate 4-6) Pantoprazole Sodium (Pantoprazole 40 Mg Vial) 40 mg IV Q12HR [facility] Sodium Chloride (Sodium Chloride 0.9% 10 Ml Syringe) 10 ml FLUSH ASDIRECTED PRN PRN Reason: Keep Vein Open Assessment/Plan Comment:: Assessment: This is a 40M with PMHx of Faulkner's Esophagus, hx of hemorrhoids, hx of ANAMARIA, presenting with symptomatic anemia and hematochezia. 1. Symptomatic anemia 2. Acute lower GI bleed 3. Hx of Faulkner's Esophagus 4. Orthostasis 5. Hx of internal hemorrhoids 6. Obesity 7. Generalized weakness Plan -admit to inpatient -type and screen -admission labs: CBC, BMP, INR, type and screen, lactate -transfuse 1unit PRBC -clear liquid diet -mivf -IV protonix -npo midnight -Gen Surgery consult for evaluation for colonoscopy/EGD Code Status-Full Code DVT ppx: SCD Dispo: Anticipated Length of stay>2 midnights; anticipated discharge to home
[2021-02-15] MEDS ORDERED: Sodium Chloride 0.9% 250 ML IV SCH (15:30)
--- NOTE | 2021-02-15 17:51 | PCM.CONS ---
H&P History of Present Illness - General Date of Service: 02/15/21 Admit Problem/Dx: Admission Diagnosis/Problem Admission Diagnosis/Problem GI bleed not requiring more than 4 units of blood in 24 hours, ICU, or surgery CC: Dizziness Source of Information: Patient, Family, Provider - History of Present Illness Initial Comments - Free Text/Narative: The patient is a 40 y/o male with a history of internal hemorrhoids and rectal bleeding requiring hospitalization. He reports having rectal bleeding and hematochezia that started about one week ago. He has had 3-4 limited episodes of rectal bleeding since his last EGD and colonoscopy about one year ago. He reports this episode was precipitated by some diarrhea when he ate something "that did not agree with him" and his hemorrhoids became enlarged. He had some pain associated with the hemorrhoids. He denies any anal pain currently. No nausea or vomiting. - Related Data Allergies/Adverse Reactions: Allergies Allergy/AdvReac Type Severity Reaction Status Date / Time apple Allergy Other Verified 02/15/21 12:48 Home Medications: Home Meds Omeprazole 20 mg PO BEDTIME 05/12/18 [History] Cholecalciferol (Vitamin D3) [Vitamin D3] 1 tab PO DAILY 02/15/21 [History] Fish Oil/[place]-3 Fatty Acids [Fish Oil 1,000 MG] 2 tab PO DAILY 02/15/21 [ History] Past Medical History Gastrointestinal History: Reports: GERD, GI Bleed, Hemorrhoids, Other (See Below) Other Gastrointestinal History: barretts esophagus. GI bleed r/t hemorrhoids. banded hemorrhoids Endocrine/Metabolic History: Reports: Obesity/BMI 30+ - Infectious Disease History Infectious Disease History: Reports: Chicken Pox - Past Surgical History GI Surgical History: Reports: Colonoscopy, EGD, Hernia, Inguinal Social & Family History - Family History Endocrine/Metabolic: Reports: Diabetes, type II - Tobacco Use Tobacco Use Status *Q: Current Every Day Tobacco User Years of Tobacco use: 26 Packs/Tins Daily: 0.7 Used Tobacco, but Quit: No - Caffeine Use Caffeine Use: Reports: Coffee, Soda - Recreational Drug Use Recreational Drug Use: No - Living Situation & Occupation Living situation: Reports: Occupation: Unemployed H&P Review of Systems - Review of Systems: Review Of Systems: See Below General: Reports: Weakness HEENT: Reports: No Symptoms Pulmonary: Reports: No Symptoms Cardiovascular: Reports: No Symptoms Gastrointestinal: Reports: Bloody Stool, Hematochezia. Denies: Nausea, Vomiting Genitourinary: Reports: No Symptoms Musculoskeletal: Reports: No Symptoms Skin: Reports: No Symptoms Neurological: Reports: Dizziness (with exertion) Hematologic/Lymphatic: Reports: Anemia Exam - Exam Exam: See Below - Vital Signs Vital Signs: Last Vital Signs Temp 36.4 C 02/15/21 16:36 Pulse 77 02/15/21 16:36 Resp 14 02/15/21 16:36 BP 120/68 02/15/21 16:36 Pulse Ox 98 02/15/21 16:36 Weight: 140.387 kg - Exam Quality Assessment: No: Supplemental Oxygen General: Alert, Oriented HEENT: Conjunctiva Clear, EOMI Neck: Supple Lungs: Normal Respiratory Effort GI/Abdominal Exam: Soft, Non-Tender, No Distention Rectal (Males) Exam: Hemorrhoids (mild internal), Other (no meera bleeding noted) Extremities: Normal Inspection Peripheral Pulses: 2+: Dorsalis Pedis (L), Dorsalis Pedis (R) Skin: Warm, Dry, Intact Neuro Extensive - Mental Status: Alert, Oriented x3, Normal Mood/Affect - Patient Data Lab Results Last 24 hrs: Laboratory Results - last 24 hr 02/15/21 02/15/21 02/15/21 Range/Units 13:20 13:20 13:20 WBC 6.46 (4.23-9.07) K/mm3 RBC 4.30 L (4.63-6.08) M/mm3 Hgb 7.6 L (13.7-17.5) gm/dl Hct 27.0 L (40.1-51.0) % MCV 62.8 L (79.0-92.2) fl MCH 17.7 L (25.7-32.2) pg MCHC 28.1 L (32.2-35.5) g/dl RDW Std Deviation 41.5 (35.1-43.9) fL Plt Count 390 H (163-337) K/mm3 MPV 9.1 L (9.4-12.3) fl Neut % (Auto) 71.9 H (34.0-67.9) % Lymph % (Auto) 19.0 L (21.8-53.1) % Benson % (Auto) 7.6 (5.3-12.2) % Eos % (Auto) 1.1 (0.8-7.0) Baso % (Auto) 0.2 (0.1-1.2) % Neut # (Auto) 4.65 (1.78-5.38) K/mm3 Lymph # (Auto) 1.23 L (1.32-3.57) K/mm3 Benson # (Auto) 0.49 (0.30-0.82) K/mm3 Eos # (Auto) 0.07 (0.04-0.54) K/mm3 Baso # (Auto) 0.01 (0.01-0.08) K/mm3 Manual Slide Review Abnormal smear PT 10.9 (9.7-12.0) SECONDS INR 1.02 Sodium 138 (136-145) mEq/L Potassium 4.1 (3.5-5.1) mEq/L Chloride 103 (98-107) mEq/L Carbon Dioxide 25 (21-32) mEq/L Anion Gap 14.1 (5-15) BUN 13 (7-18) mg/dL Creatinine 0.9 (0.7-1.3) mg/dL Est Cr Clr Drug Dosing 111.53 mL/min Estimated GFR (MDRD) > 60 (>60) mL/min BUN/Creatinine Ratio 14.4 (14-18) Glucose 98 (70-99) mg/dL Lactic Acid (0.4-2.0) mmol/L Calcium 8.5 (8.5-10.1) mg/dL Total Bilirubin 0.7 (0.2-1.0) mg/dL AST 18 (15-37) U/L ALT 36 (16-63) U/L Alkaline Phosphatase 61 (46-116) U/L Total Protein 7.2 (6.4-8.2) g/dl Albumin 3.8 (3.4-5.0) g/dl Globulin 3.4 gm/dL Albumin/Globulin Ratio 1.1 (1-2) SARS-CoV-2 RNA (CARLOS) (NEGATIVE) Blood Type Gel Antibody Screen Crossmatch 02/15/21 02/15/21 02/15/21 Range/Units 13:20 13:20 13:40 WBC (4.23-9.07) K/mm3 RBC (4.63-6.08) M/mm3 Hgb (13.7-17.5) gm/dl Hct (40.1-51.0) % MCV (79.0-92.2) fl MCH (25.7-32.2) pg MCHC (32.2-35.5) g/dl RDW Std Deviation (35.1-43.9) fL Plt Count (163-337) K/mm3 MPV (9.4-12.3) fl Neut % (Auto) (34.0-67.9) % Lymph % (Auto) (21.8-53.1) % Benson % (Auto) (5.3-12.2) % Eos % (Auto) (0.8-7.0) Baso % (Auto) (0.1-1.2) % Neut # (Auto) (1.78-5.38) K/mm3 Lymph # (Auto) (1.32-3.57) K/mm3 Benson # (Auto) (0.30-0.82) K/mm3 Eos # (Auto) (0.04-0.54) K/mm3 Baso # (Auto) (0.01-0.08) K/mm3 Manual Slide Review PT (9.7-12.0) SECONDS INR Sodium (136-145) mEq/L Potassium (3.5-5.1) mEq/L Chloride (98-107) mEq/L Carbon Dioxide (21-32) mEq/L Anion Gap (5-15) BUN (7-18) mg/dL Creatinine (0.7-1.3) mg/dL Est Cr Clr Drug Dosing mL/min Estimated GFR (MDRD) (>60) mL/min BUN/Creatinine Ratio (14-18) Glucose (70-99) mg/dL Lactic Acid 1.6 (0.4-2.0) mmol/L Calcium (8.5-10.1) mg/dL Total Bilirubin (0.2-1.0) mg/dL AST (15-37) U/L ALT (16-63) U/L Alkaline Phosphatase (46-116) U/L Total Protein (6.4-8.2) g/dl Albumin (3.4-5.0) g/dl Globulin gm/dL Albumin/Globulin Ratio (1-2) SARS-CoV-2 RNA (CARLOS) Negative (NEGATIVE) Blood Type O POSITIVE Gel Antibody Screen Negative Crossmatch See Detail Result Diagrams: 02/15/21 13:20 02/15/21 13:20 Sepsis Event Note - Evaluation Sepsis Screening Result: No Definite Risk - Focused Exam Vital Signs: Vital Signs Temp Pulse Pulse Resp BP BP Pulse Ox 02/15/21 16:36 36.4 C 77 14 120/68 98 02/15/21 16:34 36.4 C 77 14 120/68 98 02/15/21 16:12 36.7 C 81 14 117/58 L 100 02/15/21 16:11 36.7 C 81 14 117/58 L 100 02/15/21 15:32 36.7 C 77 14 130/64 99 02/15/21 12:17 36.6 C 86 18 109/53 L 100 *Q Meaningful Use (ADM) - VTE *Q VTE Pharmacological Contraindications *Q: Active Hemorrhage Consult PN Assessment/Plan Procedures: Procedures ASSAY OF IRON (03/15/20) ASSAY OF TRANSFERRIN (03/15/20) ASSAY THYROID STIM HORMONE (04/09/18) COMPLETE CBC AUTOMATED (03/15/20) COMPREHEN METABOLIC PANEL (03/15/20) EGD BIOPSY SINGLE/MULTIPLE (05/13/18) GLYCOSYLATED HEMOGLOBIN TEST (04/09/18) LIPID PANEL (04/09/18) ROUTINE VENIPUNCTURE (03/15/20) URINALYSIS AUTO W/SCOPE (04/09/18) (1) Internal bleeding hemorrhoids SNOMED Code(s): 79089486 Code(s): K64.8 - OTHER HEMORRHOIDS Priority: High Current Visit: No Problem List Initiated/Reviewed/Updated: Yes Plan: 40 y/o male with recurrent rectal bleeding. Clinically consistent with bleeding from hemorrhoids since recent colonoscopy did not reveal polyps or diverticula. - Discussed repeat hemorrhoid banding at the bedside. Discussed risks of difficulty urinating or stooling, and chance of pain. His written consent was obtained. He would like to wait until the morning to have the procedure since he will have to be in the hospital overnight for hg monitoring - transfuse per primary. 1U PRBC was transfusing. Trend Hg every 4-6 hours - Will continue to monitor for additional bleeding episodes. May need colonoscopy on this admission if Hg cannot be controlled with banding and transfusion - medical management per primary Plan for follow up in clinic once discharged Nani Womack MD General surgery
[2021-02-15] MEDS: Pantoprazole 40 MG Vial IV SCH (21:10)
[2021-02-16] MEDS: Lactated Ringers 1,000 ML IV SCH (02:40)
[2021-02-16] MEDS: Pantoprazole 40 MG Vial IV SCH (08:36)
--- NOTE | 2021-02-16 08:58 | PCM.PRNOTE ---
- Free Text/Narrative Note: Procedure Report Date of procedure: February 16, 2021 Preoperative diagnosis: Rectal bleeding Postoperative diagnosis: same Procedure: Hemorrhoid banding Surgeon: Dr. Nani Womack Anesthesia: n/a Demographic Analyst: n/a Estimated blood loss:2 mL Findings: Engorged and edematous hemorrhoids Pathology: none Indication for the procedure: Rectal bleeding Description of the procedure: The patient was positioned in left lateral decubitus position. A timeout was performed. The external anal orifice was examined showing edematous and enlarged external anal skin tags. The speculum was inserted and the hemorrhoid tissue was seen and engorged circumferentially. Three hemorrhoid bands were placed using a suction ligation device. Minimal bleeding was seen with the procedure. The patient tolerated the procedure well with no apparent complications. Nani Womack MD General surgery
--- NOTE | 2021-02-16 09:09 | PCM.SURGPN ---
- General Info Date of Service: 02/16/21 Admission Diagnosis/Problem: GI bleed not requiring more than 4 units of blood in 24 hours, ICU, or surgery Functional Status: Reports: Tolerating Diet, Other (one episode of rectal bleeding this am with bowel movement.) - Patient Data Vitals - Most Recent: Last Vital Signs Temp 36.3 C 02/16/21 07:15 Pulse 75 02/16/21 07:15 Resp 16 02/16/21 07:15 BP 118/71 02/16/21 07:15 Pulse Ox 99 02/16/21 07:15 Weight - Most Recent: 139.797 kg I&O - Last 24 Hours: Intake & Output 02/15/21 02/16/21 02/16/21 22:59 06:59 14:59 Intake Total 1111 3000 Output Total 300 2000 Balance 811 1000 Lab Results Last 24 Hrs: Laboratory Results - last 24 hr 02/15/21 02/15/21 02/15/21 Range/Units 13:20 13:20 13:20 WBC 6.46 (4.23-9.07) K/mm3 RBC 4.30 L (4.63-6.08) M/mm3 Hgb 7.6 L (13.7-17.5) gm/dl Hct 27.0 L (40.1-51.0) % MCV 62.8 L (79.0-92.2) fl MCH 17.7 L (25.7-32.2) pg MCHC 28.1 L (32.2-35.5) g/dl RDW Std Deviation 41.5 (35.1-43.9) fL Plt Count 390 H (163-337) K/mm3 MPV 9.1 L (9.4-12.3) fl Neut % (Auto) 71.9 H (34.0-67.9) % Lymph % (Auto) 19.0 L (21.8-53.1) % [place] % (Auto) 7.6 (5.3-12.2) % Eos % (Auto) 1.1 (0.8-7.0) Baso % (Auto) 0.2 (0.1-1.2) % Neut # (Auto) 4.65 (1.78-5.38) K/mm3 Lymph # (Auto) 1.23 L (1.32-3.57) K/mm3 [place] # (Auto) 0.49 (0.30-0.82) K/mm3 Eos # (Auto) 0.07 (0.04-0.54) K/mm3 Baso # (Auto) 0.01 (0.01-0.08) K/mm3 Manual Slide Review Abnormal smear PT 10.9 (9.7-12.0) SECONDS INR 1.02 Sodium 138 (136-145) mEq/L Potassium 4.1 (3.5-5.1) mEq/L Chloride 103 (98-107) mEq/L Carbon Dioxide 25 (21-32) mEq/L Anion Gap 14.1 (5-15) BUN 13 (7-18) mg/dL Creatinine 0.9 (0.7-1.3) mg/dL Est Cr Clr Drug Dosing 111.53 mL/min Estimated GFR (MDRD) > 60 (>60) mL/min BUN/Creatinine Ratio 14.4 (14-18) Glucose 98 (70-99) mg/dL Lactic Acid (0.4-2.0) mmol/L Calcium 8.5 (8.5-10.1) mg/dL Total Bilirubin 0.7 (0.2-1.0) mg/dL AST 18 (15-37) U/L ALT 36 (16-63) U/L Alkaline Phosphatase 61 (46-116) U/L Total Protein 7.2 (6.4-8.2) g/dl Albumin 3.8 (3.4-5.0) g/dl Globulin 3.4 gm/dL Albumin/Globulin Ratio 1.1 (1-2) SARS-CoV-2 RNA (CARLOS) (NEGATIVE) Blood Type Gel Antibody Screen Crossmatch 02/15/21 02/15/21 02/15/21 Range/Units 13:20 13:20 13:40 WBC (4.23-9.07) K/mm3 RBC (4.63-6.08) M/mm3 Hgb (13.7-17.5) gm/dl Hct (40.1-51.0) % MCV (79.0-92.2) fl MCH (25.7-32.2) pg MCHC (32.2-35.5) g/dl RDW Std Deviation (35.1-43.9) fL Plt Count (163-337) K/mm3 MPV (9.4-12.3) fl Neut % (Auto) (34.0-67.9) % Lymph % (Auto) (21.8-53.1) % [place] % (Auto) (5.3-12.2) % Eos % (Auto) (0.8-7.0) Baso % (Auto) (0.1-1.2) % Neut # (Auto) (1.78-5.38) K/mm3 Lymph # (Auto) (1.32-3.57) K/mm3 [place] # (Auto) (0.30-0.82) K/mm3 Eos # (Auto) (0.04-0.54) K/mm3 Baso # (Auto) (0.01-0.08) K/mm3 Manual Slide Review PT (9.7-12.0) SECONDS INR Sodium (136-145) mEq/L Potassium (3.5-5.1) mEq/L Chloride (98-107) mEq/L Carbon Dioxide (21-32) mEq/L Anion Gap (5-15) BUN (7-18) mg/dL Creatinine (0.7-1.3) mg/dL Est Cr Clr Drug Dosing mL/min Estimated GFR (MDRD) (>60) mL/min BUN/Creatinine Ratio (14-18) Glucose (70-99) mg/dL Lactic Acid 1.6 (0.4-2.0) mmol/L Calcium (8.5-10.1) mg/dL Total Bilirubin (0.2-1.0) mg/dL AST (15-37) U/L ALT (16-63) U/L Alkaline Phosphatase (46-116) U/L Total Protein (6.4-8.2) g/dl Albumin (3.4-5.0) g/dl Globulin gm/dL Albumin/Globulin Ratio (1-2) SARS-CoV-2 RNA (CARLOS) Negative (NEGATIVE) Blood Type O POSITIVE Gel Antibody Screen Negative Crossmatch See Detail 02/16/21 02/16/21 Range/Units 06:01 06:01 WBC 5.95 (4.23-9.07) K/mm3 RBC 4.57 L (4.63-6.08) M/mm3 Hgb 8.4 L (13.7-17.5) gm/dl Hct 29.4 L (40.1-51.0) % MCV 64.3 L (79.0-92.2) fl MCH 18.4 L (25.7-32.2) pg MCHC 28.6 L (32.2-35.5) g/dl RDW Std Deviation 45.1 H (35.1-43.9) fL Plt Count 351 H (163-337) K/mm3 MPV 8.9 L (9.4-12.3) fl Neut % (Auto) (34.0-67.9) % Lymph % (Auto) (21.8-53.1) % [place] % (Auto) (5.3-12.2) % Eos % (Auto) (0.8-7.0) Baso % (Auto) (0.1-1.2) % Neut # (Auto) (1.78-5.38) K/mm3 Lymph # (Auto) (1.32-3.57) K/mm3 [place] # (Auto) (0.30-0.82) K/mm3 Eos # (Auto) (0.04-0.54) K/mm3 Baso # (Auto) (0.01-0.08) K/mm3 Manual Slide Review PT (9.7-12.0) SECONDS INR Sodium 139 (136-145) mEq/L Potassium 4.3 (3.5-5.1) mEq/L Chloride 104 (98-107) mEq/L Carbon Dioxide 28 (21-32) mEq/L Anion Gap 11.3 (5-15) BUN 11 (7-18) mg/dL Creatinine 0.9 (0.7-1.3) mg/dL Est Cr Clr Drug Dosing 111.53 mL/min Estimated GFR (MDRD) > 60 (>60) mL/min BUN/Creatinine Ratio 12.2 L (14-18) Glucose 104 H (70-99) mg/dL Lactic Acid (0.4-2.0) mmol/L Calcium 8.6 (8.5-10.1) mg/dL Total Bilirubin (0.2-1.0) mg/dL AST (15-37) U/L ALT (16-63) U/L Alkaline Phosphatase (46-116) U/L Total Protein (6.4-8.2) g/dl Albumin (3.4-5.0) g/dl Globulin gm/dL Albumin/Globulin Ratio (1-2) SARS-CoV-2 RNA (CARLOS) (NEGATIVE) Blood Type Gel Antibody Screen Crossmatch Med Orders - Current: Current Medications Acetaminophen (Acetaminophen 325 Mg Tab) 650 mg PO Q4H PRN PRN Reason: Pain (Mild 1-3)/fever Lactated Ringer's (Ringers, Lactated) 1,000 mls @ 100 mls/hr IV ASDIRECTED [facility] Last Admin: 02/16/21 02:40 Dose: 100 mls/hr Documented by: Ondansetron HCl (Ondansetron 4 Mg Tab.Dis) 4 mg PO Q4H PRN PRN Reason: nausea, able to take PO Ondansetron HCl (Ondansetron 4 Mg/2 Ml Sdv) 4 mg IV Q6H PRN PRN Reason: Nausea/Vomiting Oxycodone HCl (Oxycodone 5 Mg Tab) 5 mg PO Q4H PRN PRN Reason: Pain (moderate 4-6) Pantoprazole Sodium (Pantoprazole 40 Mg Vial) 40 mg IV Q12HR [facility] Last Admin: 02/16/21 08:36 Dose: 40 mg Documented by: Sodium Chloride (Sodium Chloride 0.9% 10 Ml Syringe) 10 ml FLUSH ASDIRECTED PRN PRN Reason: Keep Vein Open Discontinued Medications Sodium Chloride (Normal Saline) 250 mls @ 100 mls/hr IV ASDIRECTED [facility] Last Admin: 02/15/21 16:23 Dose: 100 mls/hr Documented by: - Exam General: Alert, Oriented HEENT: Pupils Equal, EOMI Neck: Supple Lungs: Normal Respiratory Effort GI/Abdominal Exam: Other (edematous external hemorrhoid skin tags and engorged internal hemorrhoids) Sepsis Event Note - Evaluation Sepsis Screening Result: No Definite Risk - Focused Exam Vital Signs: Vital Signs Temp Pulse Resp BP Pulse Ox 02/16/21 07:15 36.3 C 75 16 118/71 99 02/16/21 05:03 36.7 C 72 16 119/99 H 96 - Problem List & Annotations (1) Internal bleeding hemorrhoids SNOMED Code(s): 39177592 Code(s): K64.8 - OTHER HEMORRHOIDS Status: Acute Priority: High Current Visit: No (2) Lower GI bleed SNOMED Code(s): 05219159 Code(s): K92.2 - GASTROINTESTINAL HEMORRHAGE, UNSPECIFIED Status: Acute Priority: High Current Visit: No - Problem List Review Problem List Initiated/Reviewed/Updated: Yes - My Orders Last 24 Hours: Active Orders 24 hr Category Date Time Status Patient Status [ADT] Routine ADT 02/15/21 12:57 Active Antiembolic Devices [RC] PER UNIT ROUTINE Care 02/15/21 13:01 Active Height and Weight [RC] 06 Care 02/15/21 12:58 Active Intake and Output [RC] 04,16 Care 02/15/21 12:59 Active Notify Provider Consults [RC] ASDIRECTED Care 02/15/21 13:01 Active Oxygen Therapy [RC] PRN Care 02/15/21 12:57 Active Peripheral IV Care [RC] Q4HR Care 02/15/21 13:01 Active Up to Chair [RC] ASDIRECTED Care 02/15/21 12:58 Active VTE/DVT Education [RC] PER UNIT ROUTINE Care 02/15/21 12:57 Active Verify Patient Consent Obtain [RC] ASDIRECTED Care 02/15/21 14:12 Active Vital Signs [RC] Q4HR Care 02/15/21 12:58 Active Consult to Physician [CONS] Routine Cons 02/15/21 13:00 Active Regular Diet [DIET] Diet 02/16/21 Breakfast Active Acetaminophen [TylenoL] Med 02/15/21 13:00 Active 650 mg PO Q4H PRN Lactated Ringers [Ringers, Lactated] 1,000 ml Med 02/15/21 13:00 Active IV ASDIRECTED Ondansetron [Zofran ODT] Med 02/15/21 13:00 Active 4 mg PO Q4H PRN Ondansetron [Zofran] Med 02/15/21 13:00 Active 4 mg IV Q6H PRN Pantoprazole [ProTONIX IV] Med 02/15/21 21:00 Active 40 mg IV Q12HR Sodium Chloride 0.9% [Saline Flush] Med 02/15/21 13:00 Active 10 ml FLUSH ASDIRECTED PRN oxyCODONE Med 02/15/21 13:00 Active 5 mg PO Q4H PRN Blood Transfusion Reflex Orders [OM.PC] Routine Ot 02/15/21 14:11 Ordered Peripheral IV Insertion Adult [OM.PC] Routine Ot 02/15/21 12:58 Ordered Sequential Compression Device [OM.PC] Per Unit Routine Ot 02/15/21 12:59 Ordered Transfuse RBC [Transfuse Red Blood Cells] [COMM] Oth 02/15/21 15:08 Ordered Routine Transfuse Red Blood Cells [COMM] Routine Ot 02/15/21 14:11 Ordered Resuscitation Status Routine Resus Stat 02/15/21 12:43 Ordered Medication Orders Acetaminophen (Acetaminophen 325 Mg Tab) 650 mg PO Q4H PRN PRN Reason: Pain (Mild 1-3)/fever Lactated Ringer's (Ringers, Lactated) 1,000 mls @ 100 mls/hr IV ASDIRECTED [facility] Last Admin: 02/16/21 02:40 Dose: 100 mls/hr Documented by: Infusion: 02/15/21 23:39 Dose: 100 mls/hr Documented by: Admin: 02/15/21 13:39 Dose: 100 mls/hr Documented by: PERICO Ondansetron HCl (Ondansetron 4 Mg Tab.Dis) 4 mg PO Q4H PRN PRN Reason: nausea, able to take PO Ondansetron HCl (Ondansetron 4 Mg/2 Ml Sdv) 4 mg IV Q6H PRN PRN Reason: Nausea/Vomiting Oxycodone HCl (Oxycodone 5 Mg Tab) 5 mg PO Q4H PRN PRN Reason: Pain (moderate 4-6) Pantoprazole Sodium (Pantoprazole 40 Mg Vial) 40 mg IV Q12HR [facility] Last Admin: 02/16/21 08:36 Dose: 40 mg Documented by: Admin: 02/15/21 21:10 Dose: 40 mg Documented by: MISHA Sodium Chloride (Sodium Chloride 0.9% 10 Ml Syringe) 10 ml FLUSH ASDIRECTED PRN PRN Reason: Keep Vein Open - Assessment Assessment (Free Text/Narrative):: 40 y/o male with bleeding internal hemorrhoids - Plan Plan (Free Text/Narrative):: - hemorrhoid bands placed. Will have some bleeding until ligation and healing are complete - bowel regimen for improved stool consistency - pt encouraged to attempt weight loss to prevent recurrence - pt instructed to have good toileting hygiene Follow up in clinic within one week. January d/c home per primary Nani Womack MD General surgery
--- NOTE | 2021-02-16 10:23 | PCM.DCSUM1 ---
Discharge Summary - Hospital Course Free Text/Narrative:: Assessment: This is a 40M with PMHx of Faulkner's Esophagus, hx of hemorrhoids, hx of ANAMARIA, presenting with symptomatic anemia and hematochezia. 1. Symptomatic acute blood loss anemia 2. Acute lower GI bleed 3. Hx of Faulkner's Esophagus 4. Orthostasis 5. Hx of internal hemorrhoids 6. Obesity 7. Generalized weakness Patient was admitted to the general medical floor for acute symptomatic anemia associated with lower GI bleeding. GI bleeding source established as internal hemorrhoids. This is not the first time that he has bled significantly. He had an episode of lower GI bleeding from the same source requiring transfusion because of a hemoglobin of about 6.6. The patient was admitted to the general medical floor and transfused 1 unit of packed red blood cells with appropriate response. Globin at time of discharge is 8.6. General surgery was consulted due to the bleeding hemorrhoids. A bedside banding procedure was performed on 02/16/2021. Please see operative note for complete details. The patient was notified that he may experience some mild blood loss with defecation. Patient was encouraged to maintain a soft diet with full softeners. The patient's says that they will pick some up on the way home. He also notes that he will use MiraLAX. Considering the patient's chronic, acutely low MCV, ferrous sulfate was prescribed at 325 mg 3 times daily to be taken indefinitely. Patient encouraged to follow-up with PCP with outpatient labs. HPI Initial Comments: This is a 40M with PMhx of Faulkner's Esophagus and internal hemorrhoids presenting as a direct admission from clinic for orthostatic hypotension and symptomatic anemia. The patient endorses fatigue that has been progressing over the last few weeks. He endorses intermittent bright red blood stools. He denies chest pain, sob, nausea, vomiting, hematemesis. He denies fever. Endorses dizziness and intermittent headache. His hemoglobin in clinic was noted to be 7.8. His last EGD/colonoscopy was about 1 year ago. He is not on a nticoagulation. 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 GI bleed r/t hemorrhoids. banded hemorrhoids Endocrine/Metabolic History: Reports: Obesity/BMI 30+ - Infectious Disease History Infectious Disease History: Reports: Chicken Pox - Past Surgical History GI Surgical History: Reports: Colonoscopy, EGD, Hernia, Inguinal Social & Family History - Family History Family Medical History: No Pertinent Family History - Tobacco Use Tobacco Use Status *Q: Current Every Day Tobacco User Years of Tobacco use: 26 Packs/Tins Daily: 0.7 Used Tobacco, but Quit: No - Caffeine Use Caffeine Use: Reports: Coffee, Soda - Recreational Drug Use Recreational Drug Use: No - Living Situation & Occupation Living situation: Reports: Occupation: Unemployed H&P Review of Systems - Review of Systems: Review Of Systems: See Below (negative except as noted in hpi) Exam - Exam Exam: See Below - Vital Signs Vital Signs: Last Vital Signs Temp 97.9 F 02/15/21 12:17 Pulse 86 02/15/21 12:17 Resp 18 02/15/21 12:17 BP 109/53 L 02/15/21 12:17 Pulse Ox 100 02/15/21 12:17 Weight: 309 lb 8 oz - Exam Physical Exam Comments:: Gen: no acute distress HEENT: NCAT EOMI MMM neck: supple CV: RRR normal s1 s2 Lungs: CTAB Abd: Soft, nt, nd Neuro: AOX3, moves extremities; nonfocal screening exam MSK: age appropriate muscle mass Psych: appropriate affect Skin: pale complexion Diagnosis: Stroke: No - Discharge Data Discharge Date: 02/16/21 Discharge Disposition: Home, Self-Care 01 Condition: Good - Referral to Home Health Primary Care Physician: Ashley Mcdonald NP - Patient Summary/Data Operative Procedure(s) Performed: Hemorrhoidal banding. Consults: Consultations 02/15/21 13:00 Consult to Physician [CONS] Routine General surgery Hospital Course: See above - Patient Instructions Diet, Other: Soft diet with fiber. Activity: As Tolerated, No Strenuous Activities Driving: May Drive Today Showering/Bathing: May Shower - Discharge Plan *PRESCRIPTION DRUG MONITORING PROGRAM REVIEWED*: Not Applicable *COPY OF PRESCRIPTION DRUG MONITORING REPORT IN PATIENT KIT: Not Applicable Prescriptions/Med Rec: Ferrous Sulfate [Iron] 325 mg PO TID #90 tablet Home Medications: Home Meds Omeprazole 20 mg PO BEDTIME 05/12/18 [History] Cholecalciferol (Vitamin D3) [Vitamin D3] 1 tab PO DAILY 02/15/21 [History] Fish Oil/[place]-3 Fatty Acids [Fish Oil 1,000 MG] 2 tab PO DAILY 02/15/21 [History] Ferrous Sulfate [Iron] 325 mg PO TID #90 tablet 02/16/21 [Rx] Oxygen Therapy Mode: Room Air Patient Handouts: Gastrointestinal Bleeding, [id number], Smokeless Tobacco Information, Adult, Steps to Quit Smoking Referrals: Nani Womack MD [Physician] - 02/24/21 3:45 pm (Please come at 3:30 pm to register.) Ashley Mcdonald NP [Primary Care Provider] - (Follow up as needed ) - Discharge Summary/Plan Comment DC Time >30 min.: Yes - Patient Data Vitals - Most Recent: Last Vital Signs Temp 98.1 F 02/16/21 08:53 Pulse 77 02/16/21 08:53 Resp 14 02/16/21 08:53 BP 111/72 02/16/21 08:53 Pulse Ox 100 02/16/21 08:53 Weight - Most Recent: 308 lb 3.2 oz I&O - Last 24 hours: Intake & Output 02/15/21 02/16/21 02/16/21 22:59 06:59 14:59 Intake Total 1111 3000 Output Total 300 2000 Balance 811 1000 Lab Results - Last 24 hrs: Laboratory Results - last 24 hr 02/15/21 02/15/21 02/15/21 Range/Units 13:20 13:20 13:20 WBC 6.46 (4.23-9.07) K/mm3 RBC 4.30 L (4.63-6.08) M/mm3 Hgb 7.6 L (13.7-17.5) gm/dl Hct 27.0 L (40.1-51.0) % MCV 62.8 L (79.0-92.2) fl MCH 17.7 L (25.7-32.2) pg MCHC 28.1 L (32.2-35.5) g/dl RDW Std Deviation 41.5 (35.1-43.9) fL Plt Count 390 H (163-337) K/mm3 MPV 9.1 L (9.4-12.3) fl Neut % (Auto) 71.9 H (34.0-67.9) % Lymph % (Auto) 19.0 L (21.8-53.1) % [place] % (Auto) 7.6 (5.3-12.2) % Eos % (Auto) 1.1 (0.8-7.0) Baso % (Auto) 0.2 (0.1-1.2) % Neut # (Auto) 4.65 (1.78-5.38) K/mm3 Lymph # (Auto) 1.23 L (1.32-3.57) K/mm3 [place] # (Auto) 0.49 (0.30-0.82) K/mm3 Eos # (Auto) 0.07 (0.04-0.54) K/mm3 Baso # (Auto) 0.01 (0.01-0.08) K/mm3 Manual Slide Review Abnormal smear PT 10.9 (9.7-12.0) SECONDS INR 1.02 Sodium 138 (136-145) mEq/L Potassium 4.1 (3.5-5.1) mEq/L Chloride 103 (98-107) mEq/L Carbon Dioxide 25 (21-32) mEq/L Anion Gap 14.1 (5-15) BUN 13 (7-18) mg/dL Creatinine 0.9 (0.7-1.3) mg/dL Est Cr Clr Drug Dosing 111.53 mL/min Estimated GFR (MDRD) > 60 (>60) mL/min BUN/Creatinine Ratio 14.4 (14-18) Glucose 98 (70-99) mg/dL Lactic Acid (0.4-2.0) mmol/L Calcium 8.5 (8.5-10.1) mg/dL Total Bilirubin 0.7 (0.2-1.0) mg/dL AST 18 (15-37) U/L ALT 36 (16-63) U/L Alkaline Phosphatase 61 (46-116) U/L Total Protein 7.2 (6.4-8.2) g/dl Albumin 3.8 (3.4-5.0) g/dl Globulin 3.4 gm/dL Albumin/Globulin Ratio 1.1 (1-2) SARS-CoV-2 RNA (CARLOS) (NEGATIVE) Blood Type Gel Antibody Screen Crossmatch 02/15/21 02/15/21 02/15/21 Range/Units 13:20 13:20 13:40 WBC (4.23-9.07) K/mm3 RBC (4.63-6.08) M/mm3 Hgb (13.7-17.5) gm/dl Hct (40.1-51.0) % MCV (79.0-92.2) fl MCH (25.7-32.2) pg MCHC (32.2-35.5) g/dl RDW Std Deviation (35.1-43.9) fL Plt Count (163-337) K/mm3 MPV (9.4-12.3) fl Neut % (Auto) (34.0-67.9) % Lymph % (Auto) (21.8-53.1) % [place] % (Auto) (5.3-12.2) % Eos % (Auto) (0.8-7.0) Baso % (Auto) (0.1-1.2) % Neut # (Auto) (1.78-5.38) K/mm3 Lymph # (Auto) (1.32-3.57) K/mm3 [place] # (Auto) (0.30-0.82) K/mm3 Eos # (Auto) (0.04-0.54) K/mm3 Baso # (Auto) (0.01-0.08) K/mm3 Manual Slide Review PT (9.7-12.0) SECONDS INR Sodium (136-145) mEq/L Potassium (3.5-5.1) mEq/L Chloride (98-107) mEq/L Carbon Dioxide (21-32) mEq/L Anion Gap (5-15) BUN (7-18) mg/dL Creatinine (0.7-1.3) mg/dL Est Cr Clr Drug Dosing mL/min Estimated GFR (MDRD) (>60) mL/min BUN/Creatinine Ratio (14-18) Glucose (70-99) mg/dL Lactic Acid 1.6 (0.4-2.0) mmol/L Calcium (8.5-10.1) mg/dL Total Bilirubin (0.2-1.0) mg/dL AST (15-37) U/L ALT (16-63) U/L Alkaline Phosphatase (46-116) U/L Total Protein (6.4-8.2) g/dl Albumin (3.4-5.0) g/dl Globulin gm/dL Albumin/Globulin Ratio (1-2) SARS-CoV-2 RNA (CARLOS) Negative (NEGATIVE) Blood Type O POSITIVE Gel Antibody Screen Negative Crossmatch See Detail 02/16/21 02/16/21 Range/Units 06:01 06:01 WBC 5.95 (4.23-9.07) K/mm3 RBC 4.57 L (4.63-6.08) M/mm3 Hgb 8.4 L (13.7-17.5) gm/dl Hct 29.4 L (40.1-51.0) % MCV 64.3 L (79.0-92.2) fl MCH 18.4 L (25.7-32.2) pg MCHC 28.6 L (32.2-35.5) g/dl RDW Std Deviation 45.1 H (35.1-43.9) fL Plt Count 351 H (163-337) K/mm3 MPV 8.9 L (9.4-12.3) fl Neut % (Auto) (34.0-67.9) % Lymph % (Auto) (21.8-53.1) % [place] % (Auto) (5.3-12.2) % Eos % (Auto) (0.8-7.0) Baso % (Auto) (0.1-1.2) % Neut # (Auto) (1.78-5.38) K/mm3 Lymph # (Auto) (1.32-3.57) K/mm3 [place] # (Auto) (0.30-0.82) K/mm3 Eos # (Auto) (0.04-0.54) K/mm3 Baso # (Auto) (0.01-0.08) K/mm3 Manual Slide Review PT (9.7-12.0) SECONDS INR Sodium 139 (136-145) mEq/L Potassium 4.3 (3.5-5.1) mEq/L Chloride 104 (98-107) mEq/L Carbon Dioxide 28 (21-32) mEq/L Anion Gap 11.3 (5-15) BUN 11 (7-18) mg/dL Creatinine 0.9 (0.7-1.3) mg/dL Est Cr Clr Drug Dosing 111.53 mL/min Estimated GFR (MDRD) > 60 (>60) mL/min BUN/Creatinine Ratio 12.2 L (14-18) Glucose 104 H (70-99) mg/dL Lactic Acid (0.4-2.0) mmol/L Calcium 8.6 (8.5-10.1) mg/dL Total Bilirubin (0.2-1.0) mg/dL AST (15-37) U/L ALT (16-63) U/L Alkaline Phosphatase (46-116) U/L Total Protein (6.4-8.2) g/dl Albumin (3.4-5.0) g/dl Globulin gm/dL Albumin/Globulin Ratio (1-2) SARS-CoV-2 RNA (CARLOS) (NEGATIVE) Blood Type Gel Antibody Screen Crossmatch Med Orders - Current: Current Medications Acetaminophen (Acetaminophen 325 Mg Tab) 650 mg PO Q4H PRN PRN Reason: Pain (Mild 1-3)/fever Lactated Ringer's (Ringers, Lactated) 1,000 mls @ 100 mls/hr IV ASDIRECTED [facility] Last Admin: 02/16/21 02:40 Dose: 100 mls/hr Documented by: Ondansetron HCl (Ondansetron 4 Mg Tab.Dis) 4 mg PO Q4H PRN PRN Reason: nausea, able to take PO Ondansetron HCl (Ondansetron 4 Mg/2 Ml Sdv) 4 mg IV Q6H PRN PRN Reason: Nausea/Vomiting Oxycodone HCl (Oxycodone 5 Mg Tab) 5 mg PO Q4H PRN PRN Reason: Pain (moderate 4-6) Pantoprazole Sodium (Pantoprazole 40 Mg Vial) 40 mg IV Q12HR [facility] Last Admin: 02/16/21 08:36 Dose: 40 mg Documented by: Sodium Chloride (Sodium Chloride 0.9% 10 Ml Syringe) 10 ml FLUSH ASDIRECTED PRN PRN Reason: Keep Vein Open Discontinued Medications Sodium Chloride (Normal Saline) 250 mls @ 100 mls/hr IV ASDIRECTED [facility] Last Admin: 02/15/21 16:23 Dose: 100 mls/hr Documented by: *Q Meaningful Use (DIS) - VTE *Q VTE Pharmacological Contraindications *Q: Active Hemorrhage
== END 2021-02-16 11:32 | disposition home or self-care (01) | DRG 226 ==
LOC: JD.MS 12:08
PROVIDERS: ADMIT Hospitalist; ATTEND Hospitalist
PROC: 30233N1 Transfusion of Nonautologous Red Blood Cells into Peripheral Vein, Percutaneous Approach (ICD-10-PCS; 2021-02-15)
PROC: 06LY3CC Occlusion of Hemorrhoidal Plexus with Extraluminal Device, Percutaneous Approach (ICD-10-PCS; principal; 2021-02-16)
DX: K64.8 Other hemorrhoids (principal); D62 Acute posthemorrhagic anemia; E66.9 Obesity, unspecified; I95.1 Orthostatic hypotension; K21.9 Gastro-esophageal reflux disease without esophagitis; K22.70 Barrett's esophagus without dysplasia; F17.200 Nicotine dependence, unspecified, uncomplicated; Z91.018 Allergy to other foods; Z79.899 Other long term (current) drug therapy; Z68.41 Body mass index [BMI] 40.0-44.9, adult
CPT/HCPCS: 36415; 36430; 80048; 80053; 83605; 85025; 85027; 85610; 86850; 86900; 86901; 86922; 99222; 99239; C9113; J7050; J7120; P9016; U0002

== ENCOUNTER 2023-10-11 21:27 | Emergency (ER) | payer BC ==
[2023-10-11] MEDS ORDERED: Sodium Chloride 0.9% 10 ML Syringe FLUSH PRN (21:55)
[2023-10-11 22:20] LABS: BASOPHILS PERCENT AUTO 0.6 % (0.0-1.0); EOSINOPHILS ABSOLUTE AUTO 0.1 K/mm3 (0.0-0.4); EOSINOPHILS PERCENT AUTO 1.5 % (0.0-6.0); HEMATOCRIT 41.4 % (42.0-52.0); HEMOGLOBIN 13.7 gm/dl (14.0-18.0); IMMATURE GRAN ABSOLUTE AUTO 0.03 K/mm3 (0.00-0.05); IMMATURE GRAN PERCENT AUTO 0.5 % (0.0-0.4); LYMPHOCYTES ABSOLUTE AUTO 1.2 K/mm3 (1.0-4.8); LYMPHOCYTES PERCENT AUTO 18.7 % (24.0-44.0); MEAN CORPUSCULAR HEMOGLOBIN 27.6 pg (28.0-32.0); MEAN CORPUSCULAR HGB CONC 33.1 g/dl (32.0-36.0); MEAN CORPUSCULAR VOLUME 83.3 fl (83.0-99.0); MEAN PLATELET VOLUME 8.7 fl (9.4-12.4); MONOCYTES ABSOLUTE AUTO 0.5 K/mm3 (0.0-0.8); MONOCYTES PERCENT AUTO 7.9 % (0.0-8.0); NEUTROPHILS ABSOLUTE AUTO 4.4 K/mm3 (1.8-7.7); NEUTROPHILS PERCENT AUTO 70.8 % (41.0-71.0); PLATELET COUNT,PLT 227 K/mm3 (150-400); RED BLOOD CELL COUNT 4.97 M/mm3 (4.52-5.90)
[2023-10-11] MEDS ORDERED: Aspirin 81 MG Tab.Chew PO ONE (22:47)
[2023-10-11 22:49] LABS: ALANINE AMINOTRANSFERASE,ALT 41 U/L (16-63); ALBUMIN 3.8 g/dl (3.4-5.0); ALKALINE PHOSPHATASE 73 U/L (46-116); ANION GAP 14.7 (5-15); ASPARTATE AMNIOTRANSFERASE,AST 23 U/L (15-37); BILIRUBIN TOTAL 0.8 mg/dL (0.2-1.0); BLOOD UREA NITROGEN,BUN 13 mg/dL (7-18); BUN/CREATININE RATIO 14.4 (14-18); CALCIUM 8.7 mg/dL (8.5-10.1); CARBON DIOXIDE,CO2 25 mEq/L (21-32); CHLORIDE,CL 103 mEq/L (98-107); CREATININE 0.9 mg/dL (0.7-1.3); EST CRCL DRUG DOSING (CG) 109.27 mL/min; ESTIMATED GFR 109 mL/min (>60); GLUCOSE RANDOM 100 mg/dL (70-99); POTASSIUM,K 3.7 mEq/L (3.5-5.1); PROTEIN TOTAL,TP 7.5 g/dl (6.4-8.2); SODIUM,NA 139 mEq/L (136-145)
[2023-10-11 22:50] LABS: TROPONIN I HIGH SENSITIVITY < 4 pg/mL (<=76)
[2023-10-11] MEDS ORDERED: Aspirin 81 MG Tab.Chew ONE (23:10)
== END 2023-10-11 23:48 | disposition home or self-care (01) ==
LOC: JD.ED 21:27
DX: R07.89 Other chest pain (principal); K21.9 Gastro-esophageal reflux disease without esophagitis; E66.9 Obesity, unspecified; F17.210 Nicotine dependence, cigarettes, uncomplicated; Z91.018 Allergy to other foods; Z68.42 Body mass index [BMI] 45.0-49.9, adult
CPT/HCPCS: 36415; 71046; 71046-26; 80053; 83880; 84484; 85025; 85379; 93005; 93010; 99284; 99285; A9270-GY